=== PATIENT | female | born 1965 | race Caucasian/White ===

== ENCOUNTER 2017-04-29 19:33 | Inpatient (IN) | payer OTHER ==
[~2017-04-29] VITALS: Ht 157.5 cm; Wt 65.2 kg
[2017-04-29 19:30] VITALS: PULSE 89
[~2017-04-29 19:33] MED LIST: ALBUAER3 INH; FLUO40CA PO
[2017-04-29 19:34] VITALS: BP 169/84; PULSE 84; RESP 16; TEMP 98.4; O2SAT 96
[2017-04-29] MEDS ORDERED: NITROGLYCERIN 0.4 MG SL 25 TABS/BTL SL ONE (19:45)
[2017-04-29] MEDS ORDERED: ASPIRIN 81 MG CHEW TAB PO ONE (19:45)
[2017-04-29] MEDS ORDERED: SODIUM CHLORIDE 0.9% FLUSH 10 ML FLUSH IVF PRN ×2 (19:45→20:00)
[2017-04-29] MEDS ORDERED: HEPARIN SODIUM - IV 10,000 UNITS/10 ML VIAL IV STA (19:56)
[2017-04-29] MEDS ORDERED: NITROGLYCERIN 0.4 MG SL 25 TABS/BTL SL STA (19:56)
[2017-04-29] MEDS ORDERED: ASPIRIN 81 MG CHEW TAB PO STA (19:56)
[2017-04-29] MEDS ORDERED: SODIUM CHLOR 0.9% 1000 ML INJ 1,000 ML IV ONE (19:56)
[2017-04-29] MEDS ORDERED: NITROGLYCERIN-D5W 50 MG/250 ML 250 ML IV PRN (20:00)
--- NOTE | 2017-04-29 20:07 | PD ---
HPI Chief Complaint: STEMI Alert Time Seen by Provider: 19:41 Travel History International Travel<30 days: No Contact w/Intl Traveler<30days: No Traveled to known affect area: No History of Present Illness HPI The patient is a 51 year old female who presents to the [facility] emergency department with a history of reportedly over the last 3 days having anterior neck pain that she describes as a burning sensation similar to acid reflux. She reports that the sensation seems to come and go, sometimes awakening her from sound sleep and associated with nausea and vomiting. The patient reports that 2 hours prior to arrival she began to have left-sided chest pain associated with this. She reports that the pain radiated into the left arm with a tingling sensation and also caused left-sided jaw pain. She reports that she has shortness of breath associated with this. She reports that she does have a history of COPD he tried using her inhaler without any relief. The patient denies seeing a plater helper. She denies having any prior history of heart disease. She denies ever having a stress test done previously. She reports that she does smoke a pack of cigarettes per day. She denies having any prior history of hypertension, hyperlipidemia, or diabetes mellitus. She denies having a primary care physician. She reports that she does have a family history of cardiac disease specifically at her dad who had a heart attack at the age of 45. The patient denies having any diaphoresis. She reports that over the last 2 days she's had nausea and vomiting 2-3 times per day. On review of systems, she denies having any recent fevers, congestion, abdominal pain, diarrhea, urinary symptoms, or neurologic symptoms. She reports that last night she did have a dry cough. [facility] Past Medical History Narrative Medical The patient's past medical history is significant for COPD, tobacco abuse COPD: Yes Diabetes: No Diminished Hearing: No Gastrointestinal Disorders: Yes (IBS) Immunizations Current: Yes : 4 Para: 2 Miscarriage: 2 Tubal Ligation: Yes Past Surgical History Narrative Surgical The patient's past surgical history is reportedly none. 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) Tobacco Use: Yes (1 ppd) Substance Use: No Allergies-Medications (Allergen,Severity, Reaction): Coded Allergies: No Known Allergies (Verified , 04/29/17) Reported Meds & Prescriptions Reported Meds & Active Scripts Active Reported Proair Hfa 8.5 GM Inh (Albuterol Sulfate) 90 Mcg/Act Aer 2 Puff INH Q4-6H PRN 108 mcg/actuation Fluoxetine (Fluoxetine HCl) 40 Mg Cap 40 Cap PO DAILY Review of Systems Except as stated in HPI: all other systems reviewed are Neg General / Constitutional: No: Fever Eyes: No: Visual changes HENT: Positive: Neck Pain, No: Headaches, Congestion, Neck Stiffness Cardiovascular: Positive: Chest Pain or Discomfort, Dyspnea on exertion Respiratory: Positive: Cough, Shortness of Breath Gastrointestinal: Positive: Nausea, Vomiting, Indigestion, No: Diarrhea, Abdominal Pain, Changes in Bowel Habits, Loss of Appetite Genitourinary: No: Dysuria Musculoskeletal: No: Pain Skin: No Rash Neurologic: No: Weakness Psychiatric: No: Depression Endocrine: No: Polydipsia Hematologic/Lymphatic: No: Easy Bruising Physical Exam Narrative General: The patient is well-developed well-nourished female in no acute distress. Head and Neck exam: Head is normocephalic atraumatic. Eyes: EOMI, pupils are equal round and reactive to light. Nose: Midline septum with pink mucous membranes Mouth: Dentition unremarkable. Moist mucus membranes. Posterior oropharynx is not erythematous. No tonsillar hypertrophy. Uvula midline. Airway patent. Neck: No palpable lymphadenopathy. No nuchal rigidity. No thyromegaly. Cardiovascular: Regular rate and rhythm without murmurs, gallops, or rubs. No pulse deficit to the extremities. Lungs: Clear to auscultation bilaterally. No wheezes, rhonchi, or rales. Abdomen: Soft, without tenderness to palpation in all 4 quadrants of the abdomen. No guarding, rebound, or rigidity. Normal bowel sounds are audible. No tenderness on palpation of McBurney's point. Extremities: No clubbing, cyanosis, or edema. 2+ pulses in all 4 extremities. No calf tenderness on palpation. Back: No costovertebral angle tenderness to palpation. Neurologic Exam: Grossly nonfocal. Skin Exam: No rash noted. Intact skin that is warm and dry. Data Data Last Documented VS Vital Signs Date Time Temp Pulse Resp B/P (MAP) Pulse Ox O2 Delivery O2 Flow Rate FiO2 04/29/17 20:16 99 16 154/81 (105) 98 Room Air 04/29/17 19:34 98.4 Orders Orders Aspirin Chew (Aspirin Chew) (04/29/17 19:45) Sodium Chloride 0.9% Flush (Ns Flush) (04/29/17 19:45) Nitroglycerin Sl (Nitrostat Sl) (04/29/17 19:45) Troponin I (04/29/17 19:56) Ckmb (Isoenzyme) Profile (04/29/17 19:56) Complete Blood Count With Diff (04/29/17 19:56) I-Stat Profile (04/29/17 19:56) I-Stat Creatinine (04/29/17 19:56) Calcium (04/29/17 19:56) Magnesium (Mg) (04/29/17 19:56) Prothrombin Time / Inr (Pt) (04/29/17 19:56) Act Partial Throm Time (Ptt) (04/29/17 19:56) B-Type Natriuretic Peptide (04/29/17 19:56) Chest, Single Ap (04/29/17 19:56) Electrocardiogram (04/29/17 19:56) Oxygen Administration (04/29/17 19:56) Iv Access Insert/Monitor (04/29/17 19:56) Oximetry (04/29/17 19:56) Sodium Chlor 0.9% 1000 Ml Inj (Ns 1000 M (04/29/17 19:56) Sodium Chloride 0.9% Flush (Ns Flush) (04/29/17 20:00) Aspirin Chew (Aspirin Chew) (04/29/17 19:56) Nitroglycerin Sl (Nitrostat Sl) (04/29/17 19:56) Nitroglycerin-D5w 50 Mg/250 Ml (Nitrogly (04/29/17 20:00) Heparin Inj (Heparin Inj) (04/29/17 19:56) Admit Order (Ed Use Only) (04/29/17 20:20) Heparin-Ns/Pf Inj (Heparin-Ns/Pf Inj) (04/29/17 20:22) Sodium Chlorid 0.9% 500 Ml Inj (Ns 500 M (04/29/17 20:22) CKMB (04/29/17 19:50) CKMB% (04/29/17 19:50) Labs Laboratory Tests Test 04/29/17 19:50 White Blood Count 11.7 TH/MM3 Red Blood Count 4.07 MIL/MM3 Hemoglobin 12.2 GM/DL Bedside Hemoglobin 12.2 G/DL Hematocrit 36.3 % Bedside Hematocrit 36.0 % Mean Corpuscular Volume 89.1 FL Mean Corpuscular Hemoglobin 29.9 PG Mean Corpuscular Hemoglobin Concent 33.6 % Red Cell Distribution Width 13.6 % Platelet Count 256 TH/MM3 Mean Platelet Volume 8.6 FL Neutrophils (%) (Auto) 64.5 % Lymphocytes (%) (Auto) 25.4 % Monocytes (%) (Auto) 7.7 % Eosinophils (%) (Auto) 1.9 % Basophils (%) (Auto) 0.5 % Neutrophils # (Auto) 7.5 TH/MM3 Lymphocytes # (Auto) 3.0 TH/MM3 Monocytes # (Auto) 0.9 TH/MM3 Eosinophils # (Auto) 0.2 TH/MM3 Basophils # (Auto) 0.1 TH/MM3 CBC Comment DIFF FINAL Differential Comment Prothrombin Time 9.9 SEC Prothromb Time International Ratio 0.9 RATIO Activated Partial Thromboplast Time 31.5 SEC Bedside Sodium 140 MMOL/L Bedside Potassium 3.5 MMOL/L Bedside Chloride 104 MMOL/L Bedside Blood Urea Nitrogen 14 MG/DL Bedside Creatinine 1.0 MG/DL Bedside Glucose 157 MG/DL Calcium Level 8.9 MG/DL Magnesium Level 1.9 MG/DL Total Creatine Kinase 199 U/L Creatine Kinase MB 12.0 NG/ML Creatine Kinase MB % 6.0 % Troponin I 3.55 NG/ML B-Type Natriuretic Peptide 74 PG/ML MDM Medical Decision Making Medical Screen Exam Complete: Yes Emergency Medical Condition: Yes Medical Record Reviewed: Yes Interpretation(s) Last Impressions Chest X-Ray 04/29/171955 Signed Impressions: Service Date/Time: Saturday, April 29, 2017 19:52 - CONCLUSION: No acute disease. Ronaldo Bagley MD Differential Diagnosis Unstable angina, versus STEMI, versus acid reflux Narrative Course During the course of the patients emergency department visit, the patients history, examination, and differential diagnosis were reviewed with the patient. The patient had IV access obtained and blood work sent for analysis. The patient was placed on a color checker with oximetry and blood pressure monitoring. An ECG was done on arrival. The patient's ECG reveals ST segment elevation in lead 3, aVF minimal ST segment depression is also noted in aVL. The patient's heart rate is 96. QRS duration is 92 ms, QTC 398 ms. This is a sinus rhythm. A STEMI alert was called when the ECG was brought to me for review. The patient was initially provided aspirin 324 mg by mouth 1, Sublingual nitroglycerin times one, a nitroglycerin drip will be started. The patient will be given an initial bolus of heparin 4000 units, 60 units per KG. The patients laboratory studies were reviewed and remarkable for i-STAT with creatinine reveals a sodium of 140, potassium 3.5, chloride 104, BUN 14, glucose 157, hemoglobin 12.2, creatinine 1.0. PT 9.9, PTT 31.5 Radiology studies were reviewed and remarkable for a chest x-ray showed no acute cardiopulmonary disease. The patient's case was discussed with the plater helper on-call, Dr. Duque. He agreed to take the patient emergently to the cardiac catheterization lab for further evaluation. The patient was also agreeable with this plan. The patients results were discussed with the patient, including the plan of care. I explained that further testing and/ or monitoring is indicated based on the patients history, examination, and/ or laboratory findings. Therefore, I recommended admission for additional evaluation. The patient expressed understanding and was agreeable with this plan. The patient was admitted to the hospital in guarded condition and sent to a bed under the care of the plater helper. Physician Communication Physician Communication I spoke to Dr. Duque at approximately 7:58 PM regarding this patient's case. He plans to take the patient emergently to the cardiac catheterization lab due to her having a STEMI on ECG. Diagnosis Primary Impression: STEMI (ST elevation myocardial infarction) Qualified Codes: I21.3 - ST elevation (STEMI) myocardial infarction of unspecified site Admitting Information Admitting Physician Requests: it Mildred Carroll MD Apr 29, 2017 20:07
[2017-04-29 20:16] VITALS: BP 154/81; PULSE 99; RESP 16; O2SAT 98
[2017-04-29 20:18] LABS: AUTOMATED NEUTROPHIL # 7.5 TH/MM3 (1.8-7.7); BASOPHIL # 0.1 TH/MM3 (0-0.2); BASOPHIL % 0.5 % (0.0-2.0); EOSINOPHIL # 0.2 TH/MM3 (0-0.4); EOSINOPHIL % 1.9 % (0.0-4.0); HEMATOCRIT 36.3 % (35.0-46.0); HEMO FLAGS DIFF FINAL; I-STAT POTASSIUM 3.5 MMOL/L (3.5-4.9); LYMPH % 25.4 % (9.0-44.0); MEAN CELL VOLUME 89.1 FL (80.0-100.0); MEAN CORPUSCULAR HEMOGLOBIN 29.9 PG (27.0-34.0); MEAN CORPUSCULAR HGB CONC 33.6 % (32.0-36.0); MONO % 7.7 % (0.0-8.0); NEUT % 64.5 % (16.0-70.0); PLATELET COUNT 256 TH/MM3 (150-450); RED BLOOD COUNT 4.07 MIL/MM3 (4.00-5.30); RED CELL DISTRIBUTION WIDTH 13.6 % (11.6-17.2); WHITE BLOOD COUNT 11.7 TH/MM3 (4.0-11.0)
[2017-04-29] MEDS ORDERED: SODIUM CHLORID 0.9% 500 ML INJ 500 ML ONE (20:22)
[2017-04-29] MEDS ORDERED: MIDAZOLAM HCL 2 MG/2 ML VIAL ONE (20:22)
[2017-04-29] MEDS ORDERED: HEPARIN-NS/PF INJ 1,000 ML ONE (20:22)
[2017-04-29] MEDS ORDERED: NITROGLYCERIN INJ 5 ML ONE (20:23)
[2017-04-29] MEDS ORDERED: HEPARIN SODIUM - IV 10,000 UNITS/10 ML VIAL ONE (20:23)
--- NOTE | 2017-04-29 20:26 | RADRPT ---
EXAM DATE/TIME: 04/29/2017 19:52 [place] COMPARISON: No previous studies available for comparison. INDICATIONS : Chest pain. MEDICAL HISTORY : None. SURGICAL HISTORY : None. ENCOUNTER: Initial ACUITY: 1 day PAIN SCORE: 0/10 LOCATION: Bilateral chest FINDINGS: A single view of the chest demonstrates the lungs to be symmetrically aerated without evidence of mas s, infiltrate or effusion. The cardiomediastinal contours are unremarkable. Osseous structures are intact. CONCLUSION: No acute disease. Ronaldo Bagley MD on April 29, 2017 at 20:25 Board Certified Radiologist. This report was verified electronically.
[2017-04-29 20:31] LABS: APTT (PATIENT) 31.5 SEC (24.3-30.1); INTERNATIONAL NORMALIZED RATIO 0.9 RATIO; PROTHROMBIN TIME - PATIENT 9.9 SEC (9.8-11.6)
[2017-04-29 20:32] LABS: MAGNESIUM 1.9 MG/DL (1.5-2.5)
[2017-04-29] MEDS ORDERED: CLOPIDOGREL 300 MG TAB ONE (21:05)
--- NOTE | 2017-04-29 21:13 | CATHPROC ---
[employer] HIS Report Study Information Study Number Admission Scheduled Start Study Start [id number] Apr 29 2017 8:22PM 04/29/2017 Apr 29 2017 8:28PM [facility] Service Cardiac Catheterization Admit Source Facility Department Emergency department [facility] - Mechanical Maintenance Instructor Physician and Clinical Staff Initial Aurelio Henriquez Head Baker Anne Barber,[place] Head Baker Irene Hanson,[place] Recorder Sherif Hardy,RT(R) Scrub Michael Hammonds RCIS(BS) Procedures Performed Procedure Location (Site) Vessel Name Coronary Angiograms LCA Left Coronary Coronary Angiograms RCA Right Coronary Drug Eluting Inflatio RCA Mid Right Coronary L Heart Cath PTCA RCA Mid Right Coronary Wire insertion Fem Art (right) Femoral Art Equipment Time Trimming Press Operator Description Size Mfg Part Number Used/Scraped WIRE, BALANCE MIDDLEWEIGHT [id number] 20:45 [employer] 190CM Used 190CM *[id number] TRANSDUCER, TRUWAVE [id number] 20:38 SCHMITT PAULINO * Used W/FootmarksCOCK *[id number] *[id number] *[id number] 20:38 [employer]cer INDUSTRIES PACK, CCL CUSTOM * Used *[id number] 20:45 MEDTRONIC BALLOON, 2.0 X 12MM EUPHORA 12MM Used *[id number] BALLOON, 2.75 X 12MM NC [id number] 20:55 MEDTRONIC 12MM Used EUPHORA *[id number] 20:51 MEDTRONIC STENT, 2.5 15MM BREE 2.5 15MM Used *[id number] 20:50 Mobile Location, IP MEDICAL 30 AIDAN INDEFLATOR Used *[id number] 20:38 Mobile Location, IP MEDICAL WIRE, 3MMJ .035 180CM 180CM Used *[id number] 20:38 NAMIC MANIFOLD, 4 PORT * Used *[id number] 20:38 NYCOMED OMNIPAQUE, 350 MG, 150ML 150ML [id number] Used [id number] 20:38 NUNEZ MEDICAL BLANKET,WARM AIR CCL * Used *[id number] 20:40 TERUMO MEDICAL SHEATH, FR6 TERUMO (10CM) FR 6 Used *[id number] Equipment Model, Serial, Lot Number and Expiration Data Description Model Number Serial Number Lot Number Expiration Date BALLOON, 2.0 X 12MM EUPHORA [id number] 01-15-2019 STENT, 2.5 15MM BREE [id number] 01-18-2019 History: Allergies Allergy Reaction No Known Allergies History: Risk Factors Family History of Hypertension Dyslipidemia Previous PR Previous Heart Failure Premature CAD No No Yes No No Prior Valve Prior PCI Prior CABG Surgery No No No Cerebrovascular Peripheral Artery Chronic Lung On Dialysis Diabetes Disease Disease Disease No No No No No History: Risk Factors Selection Items Current Smoker History: Symptoms/Diagnosis Selection Items Chest pain History: Stress Tests Stress or Imaging Studies Performed No History: Other Current Smoker Method Packs a Day Years Used Pack Years Yes Cigarettes 1 40 40 Labs Hgb (g/dl) Hct (%) RBC (MIL/MM3) WBC (l/cumm) Platelets (thousands) 11.60-17.00 35.00-51.00 4.00-5.90 4.00-11.00 150.00-450.00 12.2 36.3 4 11.7 256 Glucose (mg/dl) BUN (mg/dl) Creatinine (mg/dl) BUN:Creatinine (1:x) 74.00-106.00 7.00-18.00 0.50-1.30 10.00-20.00 157 14 1.0 14 Na (meq/l) K (meq/l) Cl (meq/l) Ca (mg/dl) 136.00-145.00 3.50-5.10 98.00-107.00 8.50-10.10 140 3.5 104 8.9 PT (sec) PTT (sec) INR (PTT:PT) 9.80-11.60 24.30-30.10 0.90-1.10 9.9 31.5 0.9 CPK-MB (ng/ML) 0.50-3.60 Not Drawn Medication Medication Total Dose (Bolus/Oral) Medication Total Dosage/Unit 1% XYLOCAINE 20 mL HEPARIN 4400 units Medications (Bolus/Oral) Medication Time Given Dosage/Unit Administered By Reason 1% XYLOCAINE 04/29/2017 8:36:06 PM 20 mL Aurelio Duque 20 mL 1% XYLOCAINE given in lab by Aurelio Duque in Right Groin via Subcutaneous. HEPARIN 04/29/2017 8:46:38 PM 4400 units Irene Hanson 4400 units HEPARIN given in lab by Irene Hanson, RN in Left Antecubital via Peripheral IV. Medication (Drip) Medication Time Given Dosage/Unit Concentration/Unit Diluent (ml) Solution IV Solutions 04/29/2017 8:32:41 PM 0 mL (IV) 1000 NaCl .9 Patient arrived on IV Solutions in Left Antecubital via Peripheral IV. Pump/Drip Flow = 20 ml/hr usin g NaCl .9. NITROGLYCERIN DRIP 04/29/2017 8:28:40 PM 10 mcg/min 50 mg 250 D5W Patient arrived on 10 mcg/min NITROGLYCERIN DRIP in Left Antecubital via Peripheral IV. Pump/Drip Noah w = 3 ml/hr using D5W with a concentration of 50 mg in 250 ml. NITROGLYCERN DRIP 04/29/2017 8:35:02 PM 0 units/hr 0 STOPPED Patient arrived on 0 units/hr NITROGLYCERN DRIP STOPPED given by Irene Hanson, [place]. Pump/Drip Flow = 0 ml/hr using [Solution Name]. Initial Case Assessment Cardiovascular HR Rhythm NIBP Chest Pain 60 Irregular 160/91 5 Edema Present Skin color Skin None Normal Warm Circulatory - Right Pulses Dorsalis Pedis Femoral 2 2 Scale (0,1,2,3,4,d) Circulatory - Left Pulses Dorsalis Pedis Femoral 2 2 Scale (0,1,2,3,4,d) Neurological State Oriented to time-place- Alert Moves all extremities person Respiration - General Respiration Rate SpO2 (%) O2 (lpm) (B/min) 10 100 2 Final Case Assessment Cardiovascular HR Rhythm NIBP Chest Pain 87 Sinus 152/85 0 Edema Present Skin color Skin None Normal Warm Dry Circulatory - Right Pulses Dorsalis Pedis Femoral 2 2 Scale (0,1,2,3,4,d) Circulatory - Left Pulses Dorsalis Pedis Femoral 2 2 Scale (0,1,2,3,4,d) Neurological State Oriented to time-place- Alert Moves all extremities person Respiration - General Respiration Rate SpO2 (%) O2 (lpm) (B/min) 21 90 0 Chronological Log Time Study Chronological Log 20:20:50 MD arrived. 20:24:11 Patient arrived via Bed. 20:28:17 Patient Name, D.O.B, / Armband Verified By R.N. 20:28:18 Consent signed by the physician and the patient and verified by the Mechanical Maintenance Instructor staff. 20:28:19 Pre-op and post- op instructions given; patient acknowledges understanding of instructions. 20:28:19 Verbal Stimulation=2 Physical Stimulation=2 Airway=2 Respiration=2 TOTAL=8. (0=absent, 1=li mited, 2=present) 20:28:23 Presedation assessment performed by Mechanical Maintenance Instructor RN. 20:28:28 Patient has been NPO for Less than 6Hrs. 20:28:30 Skin Breakdown-none per patient. 20::34 Patient Warmer Placed on the Table. 20:28:36 Floridalma Prominences Protected 20::37 A # 20 IV was noted in the Antecubital (left). Grade = 0 Patient arrived on 10 mcg/min NITROGLYCERIN DRIP in Left Antecubital via Peripheral IV. Pump/Dr ip Flow = 3 ml/hr 20::40 using D5W with a concentration of 50 mg in 250 ml. 20::40 History and physical on the chart or being dictated. Assessment: Initial Case, HR=60 BPM, Rhythm=Irregular, OWCA=351/91 mmhg, Chest Pain=5, Edema=No ne, Color=Normal, Skin = Warm Right Pulses: Danyel Ped=2, Femoral=2 20::41 Left Pulses: Danyel Ped=2, Femoral=2 Neurological: State=Alert, Ox3, RICARDO Respiration: Resp=10 B/min, FvM6=004 %, O2=2 lpm Vitals capture started with the following parameters, Patient=Adult, Interval=5 min, Initial Pr cqxxmq=381 mmHg, 20::45 Deflation Rate=5 mmHg, Cuff placed on Left Ankle 20:29:50 YMGP=150/91 mmhg, DsO9=320.0 %, Resp=10 B/min, Pain=7, Rosina=10, Nance=2 20:31:12 Bilateral groins prepped with 2% chlorhexidine, and with a 3 min. waiting time. 20:32:29 A # 20 IV was noted in the Antecubital (right). Grade = 0 20:32:41 Patient arrived on IV Solutions in Left Antecubital via Peripheral IV. Pump/Drip Flow = 20 ml/hr using NaCl .9. 20:34:22 HR=93 bpm, AFLQ=758/83 mmhg, VlZ5=213.0 %, Resp=10 B/min Time Out. Correct patient, correct procedure,correct physician, power injector not loaded with contrast with surgical 20:34:36 team present. Time Out Concurred by , individual staff in procedure 20:34:58 Case Start Patient arrived on 0 units/hr NITROGLYCERN DRIP STOPPED given by Irene Hanson, RN. Pump/Drip Flow = 0 ml/hr 20:35:02 using [Solution Name]. 20:36:06 20 mL 1% XYLOCAINE given in lab by Aurelio Duque in Right Groin via Subcutaneous. 20:37:03 Pressure channel 1 zeroed. 20:38:36 Access site was Right Femoral Artery. 20:39:21 HR=93 bpm, BPCG=414/82 mmhg, SpO2=99.0 %, Resp=16 B/min, Pain=7, Rosina=10, Nance=2 20:39:59 A SHEATH, FR6 TERUMO (10CM) FR 6 was advanced into the Fem Art (right) using the Percutaneo us technique. 20:40:33 An injection in the Fem Art (right) was made through the SHEATH, FR6 TERUMO (10CM) FR 6. A JL 4.0 INFINITI CATHETER FR 6 was advanced over a wire. OMNIPAQUE, 350 MG, 150ML 150ML was us ed for 20:40:58 injections. Recorded Pressure: Ao, HR=89, Condition=Condition 1 20:41:38 (Aorta) Ao 124/57/85 20:41:58 The LCA was injected and visualized at various angles. OMNIPAQUE, 350 MG, 150ML 150ML used . After removing the current catheter a JR 4.0 GUIDE CATHETER FR 6 was advanced over a WIRE, 3MMJ .035 180CM 20:43:28 180CM. 20:44:20 QQ=057 bpm, PJTC=944/85 mmhg, SpO2=99.0 %, Resp=6 B/min, Pain=7, Rosina=10, Nance=2 Recorded Pressure: LV, HR=88, Condition=Condition 1 20:44:44 (Left Ventricle) LV 145/8/16 Recorded Pressure: LV, Ao, HR=96, Condition=Condition 1 20:44:58 (Left Ventricle) LV 153/7/16, (Aorta) Ao 146/78/109 20:45:29 Reference ECG taken 20:45:40 The RCA was injected and visualized at various angles. OMNIPAQUE, 350 MG, 150ML 150ML used . 20:46:38 4400 units HEPARIN given in lab by Irene Hanson, [place] in Left Antecubital via Peripheral IV . 20:47:00 A WIRE, BALANCE MIDDLEWEIGHT 190CM 190CM was inserted via Fem Art (right). 20:48:08 Interventional wire has crossed the lesion A BALLOON, 2.0 X 12MM EUPHORA 12MM was inserted over WIRE, BALANCE MIDDLEWEIGHT 190CM 190CM via the 20:49:15 RCA Mid. 20:49:21 HR=97 bpm, WVRS=513/93 mmhg, SpO2=98.0 %, Resp=17 B/min, Pain=7, Rosina=10, Nance=2 A BALLOON, 2.0 X 12MM EUPHORA 12MM over a WIRE, BALANCE MIDDLEWEIGHT 190CM 190CM in the RCA Mid was 20:49:42 inflated using a 30 AIDAN INDEFLATOR at 12 aidan for 20 sec. 20:51:40 Activated Clotting Time Drawn 20:52:16 Balloon Removed. A STENT, 2.5 15MM BREE 2.5 15MM was advanced through a JR 4.0 GUIDE CATHETER FR 6 over a WIRE, BALANCE 20:52:38 MIDDLEWEIGHT 190CM 190CM. A STENT, 2.5 15MM BREE 2.5 15MM was deployed using a 30 AIDAN INDEFLATOR at 12 atmospheres for 20 seconds in 20:53:08 the RCA Mid. 20:54:22 AV=456 bpm, RYHB=243/87 mmhg, SpO2=99.0 %, Resp=11 B/min, Pain=7, Rosian=10, Nance=2 20:55:48 Delivery device removed A BALLOON, 2.75 X 12MM NC EUPHORA 12MM was inserted over WIRE, BALANCE MIDDLEWEIGHT 190CM 190CM via 20:55:53 the RCA Mid. A BALLOON, 2.75 X 12MM NC EUPHORA 12MM over a WIRE, BALANCE MIDDLEWEIGHT 190CM 190CM in the RCA Mid 20:56:01 was inflated using a 30 AIDAN INDEFLATOR at 16 aidan for 20 sec. A BALLOON, 2.75 X 12MM NC EUPHORA 12MM over a WIRE, BALANCE MIDDLEWEIGHT 190CM 190CM in the RCA Mid 20:56:23 was inflated using a 30 AIDAN INDEFLATOR at 18 aidan for 15 sec. 20:56:56 Balloon Removed. 20:57:11 The RCA was injected and visualized at various angles. OMNIPAQUE, 350 MG, 150ML 150ML used . 20:57:34 ACT (Normal Range 90-180) = 321 A BALLOON, 2.75 X 12MM NC EUPHORA 12MM was inserted over WIRE, BALANCE MIDDLEWEIGHT 190CM 190CM via 20:59:19 the RCA Mid. 20:59:25 HR=87 bpm, QHLF=604/79 mmhg, CnI5=788.0 %, Resp=15 B/min, Pain=7, Rosina=10, Nance=2 A BALLOON, 2.75 X 12MM NC EUPHORA 12MM over a WIRE, BALANCE MIDDLEWEIGHT 190CM 190CM in the RCA Mid 20:59:30 was inflated using a 30 AIDAN INDEFLATOR at 18 aidan for 20 sec. 21::34 Balloon Removed. 21:01:41 Wire removed 21:03:06 Catheter was removed 21:03:10 Case End 21:03:19 In the Fem Art (right) the SHEATH, FR6 TERUMO (10CM) FR [address] by Ivis Hammonds RCIS(BS). 21:03:30 No case complications noted. 21:03:31 Cine recording checked. 21:04:08 Bedside Report will be given. 21:04:12 A Left Heart Cath was performed. Assessment: Final Case, HR=87 BPM, Rhythm=Sinus, XROK=582/85 mmhg, Chest Pain=0, Edema=None, Color=Normal, Skin = Warm, Dry Right Pulses: Danyle Ped=2, Femoral=2 21:04:21 Left Pulses: Danyel Ped=2, Femoral=2 Neurological: State=Alert, Ox3, RICARDO Respiration: Resp=21 B/min, SpO2=90 %, O2=0 lpm 21:04:22 HR=91 bpm, LZBW=679/85 mmhg, SpO2=99.0 %, Resp=13 B/min, Pain=7, Rosina=10, Nance=2 21:07:40 Vitals capture stopped. 21:12:26 Patient moved to stretcher End Study - Contrast Media Used In Study Contrast Total Opened (mL) Total Used (mL) Total Wasted (mL) Omnipaque 150 100 50 End Study - Maximum Contrast Load Max Contrast Load (mL) 330.0 End Study - Radiation Exposure Fluoro Time (minutes) 6.1 End Study - Patient Disposition Complications Transferred To Interventional Outcome No Telemetry Bed successful
[2017-04-29] MEDS ORDERED: ONDANSETRON HCL 4 MG/2 ML VIAL IV PUSH PRN (21:15)
[2017-04-29] MEDS ORDERED: MISC INFORMATION XX ONE (21:15)
[2017-04-29] MEDS ORDERED: ACETAMINOPHEN 325 MG TAB PO PRN (21:15)
[2017-04-29] MEDS ORDERED: ATROPINE SULFATE 1 MG/ML VIAL IV PUSH PRN (21:15)
[2017-04-29] MEDS ORDERED: MORPHINE SULFATE 4 MG/ML INJ IV PUSH PRN (21:15)
[2017-04-29] MEDS ORDERED: ALBUTEROL SULFATE 90 MCG/ACT HFA 8 GM INHALER INH PRN (21:15)
[2017-04-29] MEDS ORDERED: oxyCODONE/ACETAMINOPHEN 5 MG/325 MG TAB PO PRN (21:15)
[2017-04-29] MEDS ORDERED: ATORVASTATIN 10 MG TAB PO SCH (21:15)
[2017-04-29] MEDS ORDERED: SODIUM CHLOR 0.9% 250 ML INJ 250 ML IV PRN (21:15)
[2017-04-29 21:30] VITALS: BP 141/80; PULSE 87; RESP 18; TEMP 98.1; O2SAT 99
[2017-04-29 22:00] VITALS: PULSE 88
[2017-04-29 23:00] VITALS: BP 124/80; PULSE 82; PULSE 85; RESP 18; TEMP 97.5; O2SAT 100
[2017-04-30] VITALS (26 sets, daily range): BP systolic 101–130; BP diastolic 63–89; PULSE 67–86; RESP 18–20; TEMP 97.6–98.7; O2SAT 96–100
[2017-04-30] MEDS: oxyCODONE/ACETAMINOPHEN 10 MG/325 MG TAB PO PRN ×2 (03:13→21:08)
--- NOTE | 2017-04-30 05:34 | MH ---
cc: AURELIO LOREDO DO DATE OF ADMISSION: 04/29/2017 CHIEF COMPLAINT Chest pain. HISTORY OF CHIEF COMPLAINT Bobbi Mendez is a pleasant 51-year-old female who presented to [facility] emergency room due to chest pain on April 29, 2017. She states that she has had anterior neck pain for the past three days and was burning in sensation. It is similar to her acid reflux but was not going away like usual. The sensation seemed to come and go, sometimes awakening her from sleeping. Around 2 hours before arrival to the emergency room she started getting left-sided chest pain associated with the similar feeling of burning in her neck. The pain radiated to her left arm with a tingling sensation. She was also short of breath. Upon presenting to the emergency room she was found to have ST elevations in the inferior lead and I was called emergently for consideration of cardiac catheterization. PAST MEDICAL HISTORY 1. COPD. 2. Tobacco abuse. PAST SURGICAL HISTORY Denies. ALLERGIES No known drug allergies. MEDICATIONS 1. Albuterol 2 puffs every 6 hours as needed for shortness of breath. 2. Fluoxetine 40 mg daily. 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 She smokes one-pack of cigarettes a day. Denies drug abuse. FAMILY HISTORY Father had a heart attack at the age of 45. REVIEW OF SYSTEMS 14-systems were reviewed including osteopathic pertinent positives and negatives above, otherwise negative. PHYSICAL EXAMINATION VITAL SIGNS: Temperature 98.4, heart rate 84, blood pressure 169/84, respirations 16, pulse ox 96% on room air. IN GENERAL: The patient appears in mild distress due to chest pain. HEENT: Extraocular muscles intact. Mucous membranes moist. NECK: Supple. No JVD at 45 degrees. No carotid bruits heard bilaterally. Carotid upstroke is brisk in nature. HEART: Regular rate and rhythm. Positive first and second heart sounds with no murmurs, gallops or rubs. LUNGS: Decreased breath sounds bilaterally but no overt wheezes, rales or rhonchi. ABDOMEN: Soft, non-tender, non-distended. No organomegaly noted. EXTREMITIES: No clubbing, cyanosis or edema. Femoral and distal pulses intact bilaterally. NEUROLOGICALLY: No focal deficits. SKIN: Warm, dry and intact. OSTEOPATHICALLY: No kyphoscoliosis, lordosis or paraspinal tender points. LABORATORY FINDINGS Hemoglobin 12.3 with hematocrit of 36.3, platelets 256. Potassium 3.5, BUN 14, creatinine 1.0. Troponin 3.55. BNP 74. ELECTROCARDIOGRAM (April 29, 2017 at 19:49) Sinus rhythm, ST elevation inferiorly consistent with an acute inferior myocardial infarction. IMPRESSIONS 1. Acute inferior ST-elevation myocardial infarction. 2. COPD. 3. Tobacco abuse. 4. Premature coronary artery disease. RECOMMENDATIONS 1. Ms. Mendez is presenting with an acute inferior myocardial infarction. 2. She will be taken emergently to the cardiac catheterization lab. 3. Risks, benefits and alternatives were explained to her and she consents as such. 4. We will check a 2-D echo to look at her overall left ventricular function, cardiac structure and possible valopathies. 5. We will have to see about adding beta yenny therapy to her regimen as she does have significant COPD. 6. I spoke to her for greater than 3 minutes about tobacco cessation. Thank you for allowing me to see Bobbi Mendez. It there are any questions, please do not hesitate to call. Aurelio Loredo DO VGP/SSB /12:18 AM /5:23 AM
--- NOTE | 2017-04-30 06:14 | MA ---
cc: AURELIO LOREDO DO DATE OF PROCEDURE April 29, 2017 PROCEDURE Left heart catheterization, coronary angiogram, revascularization of acute STEMI, status post [place] drug-eluting stent (2.5 x 15) to the RCA. Moderate sedation 30 minutes PREPROCEDURE DIAGNOSIS Acute STEMI. POSTPROCEDURE DIAGNOSIS Acute inferior STEMI status post [place]fe[place] drug-eluting stent (2.5 x 15). MEDICATIONS 1. Versed 0.5 mg. 2. Fentanyl 25 mcg. 3. Heparin 4400 units. 4. Plavix 600 mg. CONTRAST USED 100 cc. FLUOROSCOPY 6.1 minutes MODERATE SEDATION 30 minutes ESTIMATED BLOOD LOSS 10 cc. PROCEDURAL SUMMARY Bobbi Mendez is a pleasant 51-year-old female who presented with an acute inferior ST-elevation myocardial infarction. Because of this she was recommended cardiac catheterization emergently. The risks, benefits and alternatives were explained to her and she consented as such. She was brought to lab and prepped in the usual sterile fashion. The right femoral artery was accessed using a modified Seldinger technique with a micropuncture needle and placement of a 6-[place] sheath. This was easily aspirated and flushed. Of note, it appears that she does have a 30-40% lesion in her common femoral artery through which the sheath is placed. A JL-4 was advanced over a J-wire to the ascending aorta for nonselective coronary angiogram of the left coronary system. This was exchanged out for a JR-4 guide which was advanced into the left ventricle for measurement of left ventricular pressure. This pulled back across the aortic valve showing no significant gradient of aortic stenosis. The JR-4 was then engaged in the right coronary artery for right coronary angiogram. At this time the patient was given additional heparin as an anticoagulant. A BMW wire was advanced down to the distal RCA. A Compliant balloon (2 x 12) was then used to predilate the lesion. An [place] drug-eluting stent (2.5 x 15) was then inflated over the lesion. A Non-Compliant balloon (2.75 x 12) was then used to post dilate the stent. The wire was pulled back. Final angiogram shows a well-opposed stent with no dissections or perforations. The wire was removed. Guide was removed over a J-wire. The sheath was sewn in place with a plan to remove once ACTs were adequate. IMPRESSIONS 1. Acute inferior STEMI. 2. Coronary artery disease status post [place]fego drug-eluting stent (2.5 x 15) to the mid-RCA postdilated to 2.75. 3. COPD. RECOMMENDATIONS 1. Ms. Loredo presented with an acute inferior STEMI and received one [place] drug-eluting stent to the RCA. 2. She will be placed on aspirin, Plavix and statin therapy. Beta-yenny will be held at this time due to her COPD but may be reevaluated before discharge. 3. She will be watched on CIC for least 48 hours post DE. 4. We will check an echo to look at her overall left ventricular function, cardiac structure and possible valvopathies. 5. Further recommendations will be made based on the hospital course. Thank you for allowing me to see Bobbi Loredo. If there are any questions, please do not hesitate to call. Aurelio Loredo DO VGP/SSB /12:25 AM /6:02 AM
[2017-04-30 06:40] LABS: AUTOMATED NEUTROPHIL # 5.5 TH/MM3 (1.8-7.7); BASOPHIL % 0.5 % (0.0-2.0); EOSINOPHIL # 0.2 TH/MM3 (0-0.4); EOSINOPHIL % 2.4 % (0.0-4.0); HEMATOCRIT 33.5 % (35.0-46.0); HEMO FLAGS DIFF FINAL; LYMPH % 30.8 % (9.0-44.0); LYMPHOCYTE # 2.8 TH/MM3 (1.0-4.8); MEAN CELL VOLUME 89.8 FL (80.0-100.0); MEAN CORPUSCULAR HEMOGLOBIN 29.9 PG (27.0-34.0); MEAN CORPUSCULAR HGB CONC 33.4 % (32.0-36.0); MONO % 6.7 % (0.0-8.0); NEUT % 59.6 % (16.0-70.0); PLATELET COUNT 233 TH/MM3 (150-450); RED BLOOD COUNT 3.74 MIL/MM3 (4.00-5.30); RED CELL DISTRIBUTION WIDTH 13.8 % (11.6-17.2); WHITE BLOOD COUNT 9.3 TH/MM3 (4.0-11.0)
[2017-04-30 07:18] LABS: BICARBONATE 24.5 MEQ/L (21.0-32.0); POTASSIUM 3.8 MEQ/L (3.5-5.1)
[2017-04-30 07:29] LABS: HDL CHOLESTEROL 49.5 MG/DL (40.0-60.0)
[2017-04-30] MEDS ORDERED: ATROPINE SULFATE 1 MG/10 ML SYRINGE ONE (07:42)
[2017-04-30] MEDS ORDERED: EPINEPHrine HCL (1:10,000) 1 MG/10 ML SYRINGE ONE (07:43)
[2017-04-30] MEDS: ASPIRIN 81 MG CHEW TAB PO SCH (09:00)
[2017-04-30] MEDS ORDERED: INFLUENZA VIRUS VACCINE (QUADRIVALENT) 0.5 ML SYR IM ONE (09:00)
[2017-04-30] MEDS: CLOPIDOGREL 75 MG TAB PO SCH (09:00)
[2017-04-30] MEDS: LISINOPRIL 5 MG TAB PO SCH (09:00)
[2017-04-30] MEDS: FLUoxetine HCL 20 MG CAP PO SCH (09:00)
--- NOTE | 2017-04-30 13:15 | PD.CONS ---
[facility] Consult Requested By Dr. Duque Reason for Consult Medical management and transfer of care Primary Care Physician Mariela Frost D.O. Diagnoses: History of Present Illness This is a 51-year-old female with a history of COPD, tobacco abuse and IBS. Patient reports of burning neck pain for the past 3 days similar to her symptoms from GERD. She also has been nauseous and had vomited several times associated with diaphoresis which she thought was related to her hormonal changes. On the night of admission, she also developed severe left-sided burning chest pain with tingling of the left upper extremity associated with shortness of breath prompting ER evaluation and was diagnosed with inferior wall STEMI. Underwent urgent cardiac catheterization with RCA stenting. Consultation has been requested by her attending Dr. Duque whom I discussed the case with. She also developed abdominal pain this morning secondary to her very retention relieved with Ball catheter insertion. Denies fever, chills, back pain and UTI symptoms. All other systems reviewed negative Review of Systems Except as stated in HPI: all other systems reviewed are Neg Past Family Social History Allergies: Coded Allergies: No Known Allergies (Verified , 04/29/17) Past Medical History As previously mentioned Past Surgical History As previously mentioned. Bilateral tubal ligation Reported Medications Reported Meds & Active Scripts Active Reported Proair Hfa 8.5 GM Inh (Albuterol Sulfate) 90 Mcg/Act Aer 2 Puff INH Q4-6H PRN 108 mcg/actuation Fluoxetine (Fluoxetine HCl) 40 Mg Cap 40 Cap PO DAILY Family History CAD Social History Smokes a pack per day. 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 Physical Exam Vital Signs Vital Signs Date Time Temp Pulse Resp B/P (MAP) Pulse Ox O2 Delivery O2 Flow Rate FiO2 04/30/17 09:00 Room Air 04/30/17 09:00 78 04/30/17 08:00 82 04/30/17 07:30 98.4 84 20 130/89 (103) 98 04/30/17 07:00 84 04/30/17 06:00 71 04/30/17 05:00 78 04/30/17 04:00 76 04/30/17 03:20 100 Nasal Cannula 2.00 04/30/17 03:20 97.7 83 18 110/73 (85) 100 04/30/17 03:00 74 04/30/17 02:00 75 04/30/17 01:00 83 04/30/17 00:00 84 04/29/17 23:00 85 04/29/17 23:00 97.5 82 18 124/80 (95) 100 04/29/17 23:00 100 Nasal Cannula 2.00 04/29/17 22:00 88 04/29/17 21:30 98.1 87 18 141/80 (100) 99 04/29/17 21:30 99 Nasal Cannula 2.00 04/29/17 20:16 99 16 154/81 (105) 98 Room Air 04/29/17 20:16 98 Room Air 04/29/17 20:12 99 154/81 04/29/17 19:34 98.4 84 16 169/84 (112) 96 Room Air 04/29/17 19:30 89 Physical Exam GENERAL: This is a well-nourished, well-developed patient, in no apparent distress. SKIN: No rashes, ecchymoses or lesions. Cool and dry. HEAD: Atraumatic. Normocephalic. No temporal or scalp tenderness. EYES: Pupils equal round and reactive. Extraocular motions intact. No scleral icterus. No injection or drainage. ENT: Nose without bleeding, purulent drainage or septal hematoma. Throat without erythema, tonsillar hypertrophy or exudate. Uvula midline. Airway patent. NECK: Trachea midline. No JVD or lymphadenopathy. Supple, nontender, no meningeal signs. CARDIOVASCULAR: Regular rate and rhythm without murmurs, gallops, or rubs. RESPIRATORY: Clear to auscultation. Breath sounds equal bilaterally. No wheezes , rales, or rhonchi. GASTROINTESTINAL: Abdomen soft, non-tender, nondistended. No guarding. Ball catheter in place MUSCULOSKELETAL: Extremities without clubbing, cyanosis, or edema. No joint tenderness, effusion, or edema noted. No calf tenderness. Negative Homans sign bilaterally. NEUROLOGICAL: Awake and alert. Cranial nerves II through XII intact. Motor and sensory grossly within normal limits. Five out of 5 muscle strength in all muscle groups. Normal speech. Laboratory Laboratory Tests Test 04/29/17 19:50 04/30/17 06:15 White Blood Count 11.7 9.3 Red Blood Count 4.07 3.74 Hemoglobin 12.2 11.2 Bedside Hemoglobin 12.2 Hematocrit 36.3 33.5 Bedside Hematocrit 36.0 Mean Corpuscular Volume 89.1 89.8 Mean Corpuscular Hemoglobin 29.9 29.9 Mean Corpuscular Hemoglobin Concent 33.6 33.4 Red Cell Distribution Width 13.6 13.8 Platelet Count 256 233 Mean Platelet Volume 8.6 8.4 Neutrophils (%) (Auto) 64.5 59.6 Lymphocytes (%) (Auto) 25.4 30.8 Monocytes (%) (Auto) 7.7 6.7 Eosinophils (%) (Auto) 1.9 2.4 Basophils (%) (Auto) 0.5 0.5 Neutrophils # (Auto) 7.5 5.5 Lymphocytes # (Auto) 3.0 2.8 Monocytes # (Auto) 0.9 0.6 Eosinophils # (Auto) 0.2 0.2 Basophils # (Auto) 0.1 0.0 CBC Comment DIFF FINAL DIFF FINAL Differential Comment Prothrombin Time 9.9 Prothromb Time International Ratio 0.9 Activated Partial Thromboplast Time 31.5 Bedside Sodium 140 Bedside Potassium 3.5 Bedside Chloride 104 Bedside Blood Urea Nitrogen 14 Bedside Creatinine 1.0 Bedside Glucose 157 Calcium Level 8.9 8.1 Magnesium Level 1.9 Total Creatine Kinase 199 Creatine Kinase MB 12.0 Creatine Kinase MB % 6.0 Troponin I 3.55 B-Type Natriuretic Peptide 74 Blood Urea Nitrogen 11 Creatinine 0.61 Random Glucose 89 Sodium Level 140 Potassium Level 3.8 Chloride Level 109 Carbon Dioxide Level 24.5 Anion Gap 7 Estimat Glomerular Filtration Rate 103 Triglycerides Level 154 Cholesterol Level 185 LDL Cholesterol 105 HDL Cholesterol 49.5 Cholesterol/HDL Ratio 3.73 Result Diagram: 04/30/1761404/30/17614 Imaging EKG tracing reviewed by me with ST elevation in the inferior leads Chest x-ray image interpreted by me with no acute cardiopulmonary disease Last Impressions Chest X-Ray 04/29/171955 Signed Impressions: Service Date/Time: Saturday, April 29, 2017 19:52 - CONCLUSION: No acute disease. Ronaldo Bagley MD Assessment and Plan Problem List: (1) STEMI (ST elevation myocardial infarction) ICD Code: I21.3 - ST elevation (STEMI) myocardial infarction of unspecified site Status: Acute Assessment and Plan This is a 51-year-old female with a history of COPD, tobacco abuse and IBS. She presents with chest pain, nausea, vomiting, shortness of breath and diaphoresis. EKG shows ST elevation in the inferior wall with elevated cardiac enzymes Inferior wall STEMI. Underwent urgent cardiac catheterization with RCA stenting. Stable continue aspirin, Plavix, lisinopril and Lipitor. Start beta yenny in the morning if her COPD remained stable. Risk factor modification tobacco cessation and follow-up A1c. COPD. Albuterol as needed Urinary retention. Ball care. Obtain urinalysis DVT prophylaxis with SCD and early ambulation Discussed Condition With Patient Problem Qualifiers (1) STEMI (ST elevation myocardial infarction): Qualified Codes: I21.3 - ST elevation (STEMI) myocardial infarction of unspecified site Erlin Mcbride MD Apr 30, 2017 13:15
[2017-04-30 13:22] LABS: HEMOGLOBIN A1a 0.9 %; HEMOGLOBIN A1b 1.8 %; HEMOGLOBIN Ao 84.8 %; HEMOGLOBIN LA1C 2.3 %; HEMOGLOBIN P3 3.9 %
[2017-04-30 14:10] LABS: BLOOD, URINE TRACE (NEG); GLUCOSE,URINE NEG (NEG); KETONE, URINE NEG (NEG); MUCUS URINE FEW /lpf (OCC); NITRITE,URINE NEG (NEG); URINE COLOR LIGHT-YELLOW (YELLW/STRAW)
[2017-04-30 14:13] LABS: COMMENT (UR) CATH-CULT NOT IND; CULTURE IF INDICATED CATH CULTURE NOT IND
--- NOTE | 2017-04-30 14:23 | EKG ---
Date Performed: 04/29/2017 Time Performed: 19:49:40 PTAGE: 51 years EKG: Sinus rhythm ST ELEVATION, CONSIDER INFERIOR INJURY ACUTE WV Reciprocal anterior changes Clinical correlati on urgently recommended NO PREVIOUS TRACING DOCTOR: Chad Vickers Interpretating Date/Time 04/30/2017 14:22:50
--- NOTE | 2017-04-30 14:25 | EKG ---
Date Performed: 04/30/2017 Time Performed: 05:59:14 PTAGE: 51 years EKG: Sinus rhythm Inferior T wave changes are nonspecific Low QRS voltages in limb leads Continued evolution of an inf erior myocardial infarction Borderline ECG PREVIOUS TRACING : 04/29/2017 23.47 DOCTOR: Chad Vickers Interpretating Date/Time 04/30/2017 14:23:50
--- NOTE | 2017-04-30 14:25 | EKG ---
Date Performed: 04/29/2017 Time Performed: 23:47:16 PTAGE: 51 years EKG: Sinus rhythm Indeterminate axis Inferior T wave changes are nonspecific Low QRS voltages in limb leads Evolution of an inferior wall myocardial infarction Borderline ECG PREVIOUS TRACING : 04/29/2017 19.49 DOCTOR: Chad Vickers Interpretating Date/Time 04/30/2017 14:23:11
[2017-04-30] MEDS ORDERED: IOHEXOL 350 MG/ML 100 ML BTL (for Cath Lab) OTHER ONE (15:28)
--- NOTE | 2017-04-30 15:32 | ECHRPT ---
Indication: STEMI CONCLUSIONS Normal left ventricular size. Wall thickness is normal. The left ventricular systolic function is normal with an estimated ejection fraction of 55%. Doppler parameters are consistent with impaired left ventricular relaxtion (grade 1 diastolic dysfun ction). Trace MR. BP: 110 / 73 HR: Rhythm: Sinus MEASUREMENTS (Male / Female) Normal Values Technical Quality:Fair 2D ECHO LV Diastolic Diameter PLAX 4.3 cm 4.2 - 5.9 / 3.9 - 5.3 cm LV Systolic Diameter PLAX 3.3 cm IVS Diastolic Thickness 0.7 cm 0.6 - 1.0 / 0.6 - 0.9 cm LVPW Diastolic Thickness 0.8 cm 0.6 - 1.0 / 0.6 - 0.9 cm LV Relative Wall Thickness 0.4 LVOT Diameter 2.0 cm Aortic Root Diameter 3.1 cm LA Systolic Diameter LX 2.5 cm 3.0 - 4.0 / 2.7 - 3.8 cm M-MODE AV Cusp Separation MM 2.1 cm DOPPLER AV Peak Velocity 120.0 cm/s AV Peak Gradient 5.8 mmHg AV Mean Gradient 3.0 mmHg AV Velocity Time Integral 23.2 cm LVOT Peak Velocity 73.7 cm/s LVOT Peak Gradient 2.2 mmHg LVOT Velocity Time Integral 14.8 cm AV Area Cont Eq vti 2.0 cm AV Area Cont Eq pk 1.9 cm Mitral E Point Velocity 80.5 cm/s Mitral A Point Velocity 99.2 cm/s Mitral E to A Ratio 0.8 LV E' Lateral Velocity 9.6 cm/s Mitral E to LV E' Lateral Ratio 8.4 LV E' Septal Velocity 6.3 cm/s Mitral E to LV E' Septal Ratio 12.7 PV Peak Velocity 77.5 cm/s PV Peak Gradient 2.4 mmHg FINDINGS LEFT VENTRICLE Normal left ventricular size. Normal left ventricular size. Wall thickness is normal. The left ventricular systolic function is normal with an estimated ejection fraction in the range of 55%. Doppler parameters are consistent with impaired left ventricular relaxtion (grade 1 diastolic dysfun ction). RIGHT VENTRICLE Normal right ventricular size and systolic function. LEFT ATRIUM The left atrial size is normal. RIGHT ATRIUM The right atrial size is normal. ATRIAL SEPTUM No atrial level shunt is demonstrated by color flow Doppler interrogation. AORTA The aortic root and proximal ascending aorta are normal in size on limited imaging. MITRAL VALVE Structurally normal mitral valve. Trace mitral valve regurgitation. AORTIC VALVE Trileaflet aortic valve. No aortic valve regurgitation. TRICUSPID VALVE Structurally normal tricuspid valve. No tricuspid regurgitation. Normal estimated pulmonary pressures. PULMONARY VALVE No pulmonary valve regurgitation or stenosis. VESSELS The inferior vena cava (IVC) is normal in size. PERICARDIUM No pericardial effusion. Lee Latham MD, FACC (Electronically Signed) Final Date:30 April 2017 15:31
--- NOTE | 2017-04-30 17:08 | PD.CARD.PN ---
Subjective Subjective Remarks Doing well No complaints Did have abdominal pain this morning, but unable to urinate, did well after straight cathing Objective Medications Current Medications Medications (Trade) Dose Ordered Sig/Peter Route Start Time Stop Time Status Last Admin (NS Flush) 2 ml UNSCH PRN IVF 04/29/17 20:00 Nitroglycerin/ Dextrose 250 ml @ 3 mls/hr TITRATE PRN IV 04/29/17 20:00 04/29/17 20:12 (Proair Hfa Inh) 2 puff Q6HR PRN INH 04/29/17 21:15 04/30/17 03:30 (PROzac) 40 mg DAILY PO 04/30/17 09:00 04/30/17 09:00 (Tylenol) 325 mg Q4H PRN PO 04/29/17 21:15 (Percocet 5-325 Mg) 1 tab Q4H PRN PO 04/29/17 21:15 04/29/17 23:14 (Percocet 10-325 Mg) 1 tab Q4H PRN PO 04/29/17 21:15 04/30/17 03:13 (Morphine Inj) 2 mg Q30M PRN IV PUSH 04/29/17 21:15 (Aspirin Chew) 81 mg DAILY PO 04/30/17 09:00 04/30/17 09:00 (Plavix) 75 mg DAILY PO 04/30/17 09:00 04/30/17 09:00 (Atropine Inj) 0.5 mg UNSCH PRN IV PUSH 04/29/17 21:15 Sodium Chloride 250 ml @ 500 mls/hr ONCE PRN IV 04/29/17 21:15 04/30/17 21:14 (Zofran Inj) 4 mg Q4H PRN IV PUSH 04/29/17 21:15 (Prinivil) 5 mg DAILY PO 04/30/17 09:00 04/30/17 09:00 (Lipitor) 80 mg HS PO 04/30/17 21:00 Vital Signs / I&O Vital Signs Date Time Temp Pulse Resp B/P (MAP) Pulse Ox O2 Delivery O2 Flow Rate FiO2 04/30/17 16:00 80 04/30/17 15:30 98.7 80 20 101/63 (76) 100 04/30/17 15:00 76 04/30/17 14:00 82 04/30/17 13:00 80 04/30/17 12:00 86 04/30/17 11:00 84 04/30/17 11:00 97.6 78 18 127/86 (100) 98 04/30/17 10:00 84 04/30/17 09:00 Room Air 04/30/17 09:00 78 04/30/17 08:00 82 04/30/17 07:30 98.4 84 20 130/89 (103) 98 04/30/17 07:00 84 04/30/17 06:00 71 04/30/17 05:00 78 04/30/17 04:00 76 04/30/17 03:20 100 Nasal Cannula 2.00 04/30/17 03:20 97.7 83 18 110/73 (85) 100 04/30/17 03:00 74 04/30/17 02:00 75 04/30/17 01:00 83 04/30/17 00:00 84 04/29/17 23:00 85 04/29/17 23:00 97.5 82 18 124/80 (95) 100 04/29/17 23:00 100 Nasal Cannula 2.00 04/29/17 22:00 88 04/29/17 21:30 98.1 87 18 141/80 (100) 99 04/29/17 21:30 99 Nasal Cannula 2.00 04/29/17 20:16 99 16 154/81 (105) 98 Room Air 04/29/17 20:16 98 Room Air 04/29/17 20:12 99 154/81 04/29/17 19:34 98.4 84 16 169/84 (112) 96 Room Air 04/29/17 19:30 89 I/O 04/29/17 04/29/17 04/29/17 04/30/17 04/30/17 04/30/17 07:00 15:00 23:00 07:00 15:00 23:00 Intake Total 1180 ml Output Total 800 ml Balance 380 ml Intake Oral 480 ml IV Total 700 ml Output Urine Total 800 ml # Bowel Movements 0 Physical Exam GENERAL: NAD, AAOx3 SKIN: Warm and dry. HEAD: Atraumatic. Normocephalic. EYES: Pupils equal and round. No scleral icterus. No injection or drainage. ENT: No nasal bleeding or discharge. Mucous membranes pink and moist. NECK: Trachea midline. No JVD. CARDIOVASCULAR: Regular rate and rhythm. RESPIRATORY: No accessory muscle use. Clear to auscultation. Breath sounds equal bilaterally. GASTROINTESTINAL: Abdomen soft, non-tender, nondistended. Hepatic and splenic margins not palpable. MUSCULOSKELETAL: Extremities without clubbing, cyanosis, or edema. No obvious deformities. Right femoral no hematoma, mild ecchymosis NEUROLOGICAL: Awake and alert. No obvious cranial nerve deficits. Motor grossly within normal limits. Five out of 5 muscle strength in the arms and legs. Normal speech. PSYCHIATRIC: Appropriate mood and affect; insight and judgment normal. Laboratory Laboratory Tests Test 04/29/17 19:50 04/30/17 06:15 04/30/17 13:28 White Blood Count 11.7 TH/MM3 9.3 TH/MM3 Red Blood Count 4.07 MIL/MM3 3.74 MIL/MM3 Hemoglobin 12.2 GM/DL 11.2 GM/DL Bedside Hemoglobin 12.2 G/DL Hematocrit 36.3 % 33.5 % Bedside Hematocrit 36.0 % Mean Corpuscular Volume 89.1 FL 89.8 FL Mean Corpuscular Hemoglobin 29.9 PG 29.9 PG Mean Corpuscular Hemoglobin Concent 33.6 % 33.4 % Red Cell Distribution Width 13.6 % 13.8 % Platelet Count 256 TH/MM3 233 TH/MM3 Mean Platelet Volume 8.6 FL 8.4 FL Neutrophils (%) (Auto) 64.5 % 59.6 % Lymphocytes (%) (Auto) 25.4 % 30.8 % Monocytes (%) (Auto) 7.7 % 6.7 % Eosinophils (%) (Auto) 1.9 % 2.4 % Basophils (%) (Auto) 0.5 % 0.5 % Neutrophils # (Auto) 7.5 TH/MM3 5.5 TH/MM3 Lymphocytes # (Auto) 3.0 TH/MM3 2.8 TH/MM3 Monocytes # (Auto) 0.9 TH/MM3 0.6 TH/MM3 Eosinophils # (Auto) 0.2 TH/MM3 0.2 TH/MM3 Basophils # (Auto) 0.1 TH/MM3 0.0 TH/MM3 CBC Comment DIFF FINAL DIFF FINAL Differential Comment Prothrombin Time 9.9 SEC Prothromb Time International Ratio 0.9 RATIO Activated Partial Thromboplast Time 31.5 SEC Bedside Sodium 140 MMOL/L Bedside Potassium 3.5 MMOL/L Bedside Chloride 104 MMOL/L Bedside Blood Urea Nitrogen 14 MG/DL Bedside Creatinine 1.0 MG/DL Bedside Glucose 157 MG/DL Calcium Level 8.9 MG/DL 8.1 MG/DL Magnesium Level 1.9 MG/DL Total Creatine Kinase 199 U/L Creatine Kinase MB 12.0 NG/ML Creatine Kinase MB % 6.0 % Troponin I 3.55 NG/ML B-Type Natriuretic Peptide 74 PG/ML Blood Urea Nitrogen 11 MG/DL Creatinine 0.61 MG/DL Random Glucose 89 MG/DL Sodium Level 140 MEQ/L Potassium Level 3.8 MEQ/L Chloride Level 109 MEQ/L Carbon Dioxide Level 24.5 MEQ/L Anion Gap 7 MEQ/L Estimat Glomerular Filtration Rate 103 ML/MIN Hemoglobin A1c 5.7 % Triglycerides Level 154 MG/DL Cholesterol Level 185 MG/DL LDL Cholesterol 105 MG/DL HDL Cholesterol 49.5 MG/DL Cholesterol/HDL Ratio 3.73 RATIO Urine Color LIGHT-YELLOW Urine Turbidity CLEAR Urine pH 6.0 Urine Specific [place] 1.013 Urine Protein NEG mg/dL Urine Glucose (UA) NEG mg/dL Urine Ketones NEG mg/dL Urine Occult Blood TRACE Urine Nitrite NEG Urine Bilirubin NEG Urine Urobilinogen LESS THAN 2.0 MG/DL Urine Leukocyte Esterase SMALL Urine RBC 1 /hpf Urine WBC 3 /hpf Urine Mucus FEW /lpf Microscopic Urinalysis Comment CATH-CULT NOT IND Assessment and Plan Problem List: (1) STEMI (ST elevation myocardial infarction) ICD Codes: I21.3 - ST elevation (STEMI) myocardial infarction of unspecified site Status: Acute (2) CAD (coronary artery disease) ICD Codes: I25.10 - Atherosclerotic heart disease of [place] coronary artery without angina pectoris (3) COPD (chronic obstructive pulmonary disease) ICD Codes: J44.9 - Chronic obstructive pulmonary disease, unspecified Status: Acute Assessment and Plan 1) STEMI s/p [place] THIERRY (2.5x15) to RCA ASA/Plavix/Statin/CARTER-I Will add low dose BB 2) EF 55-60%, Grade 1 DD 3) Plan for possible discharge tomorrow morning if stable 4) Tobacco cessation Problem Qualifiers (1) STEMI (ST elevation myocardial infarction): Qualified Codes: I21.11 - ST elevation (STEMI) myocardial infarction involving right coronary artery Aurelio Duque DO Apr 30, 2017 17:08
[2017-04-30] MEDS: METOPROLOL TARTRATE 25 MG TAB PO SCH (20:51)
[2017-04-30] MEDS: ALPRAZolam 0.25 MG TAB PO SCH (20:51)
[2017-04-30] MEDS ORDERED: ATORVASTATIN 80 MG TAB PO SCH (21:00)
[2017-05-01] VITALS (10 sets, daily range): BP systolic 87–104; BP diastolic 63; PULSE 57–80; RESP 18–20; TEMP 97.6–97.9; O2SAT 100
[2017-05-01] MEDS ORDERED: INFLUENZA VIRUS VACCINE (QUADRIVALENT) 0.5 ML SYR IM ONE (03:30)
[2017-05-01 06:31] LABS: BASOPHIL # 0.1 TH/MM3 (0-0.2); BASOPHIL % 0.6 % (0.0-2.0); EOSINOPHIL # 0.3 TH/MM3 (0-0.4); EOSINOPHIL % 3.2 % (0.0-4.0); HEMATOCRIT 31.9 % (35.0-46.0); HEMO FLAGS DIFF FINAL; LYMPH % 25.9 % (9.0-44.0); LYMPHOCYTE # 2.4 TH/MM3 (1.0-4.8); MEAN CELL VOLUME 91.3 FL (80.0-100.0); MEAN CORPUSCULAR HEMOGLOBIN 30.3 PG (27.0-34.0); MEAN CORPUSCULAR HGB CONC 33.2 % (32.0-36.0); MONO % 6.4 % (0.0-8.0); NEUT % 63.9 % (16.0-70.0); PLATELET COUNT 218 TH/MM3 (150-450); RED CELL DISTRIBUTION WIDTH 14.2 % (11.6-17.2); WHITE BLOOD COUNT 9.4 TH/MM3 (4.0-11.0)
[2017-05-01 06:59] LABS: BICARBONATE 26.3 MEQ/L (21.0-32.0); POTASSIUM 4.1 MEQ/L (3.5-5.1)
[2017-05-01] MEDS: ALPRAZolam 0.25 MG TAB PO SCH (08:00)
[2017-05-01] MEDS: ASPIRIN 81 MG CHEW TAB PO SCH (08:08)
[2017-05-01] MEDS: CLOPIDOGREL 75 MG TAB PO SCH (08:08)
[2017-05-01] MEDS: METOPROLOL TARTRATE 25 MG TAB PO SCH (08:09)
[2017-05-01] MEDS: FLUoxetine HCL 20 MG CAP PO SCH (08:09)
[2017-05-01] MEDS: LISINOPRIL 5 MG TAB PO SCH (08:10)
[2017-05-01] MEDS ORDERED: NITR1SUB3 SL (09:53)
[2017-05-01] MEDS ORDERED: METO25TA3 PO (09:53)
[2017-05-01] MEDS ORDERED: ASPI81CH25 PO (09:53)
[2017-05-01] MEDS ORDERED: PLAV75TA29 PO (09:53)
[2017-05-01] MEDS ORDERED: ATOR1TAB18 PO (09:53)
[2017-05-01] MEDS ORDERED: LISI-519 PO (09:53)
--- NOTE | 2017-05-01 09:53 | HHI.DCPOC ---
Discharge Care Plan Diagnosis: (1) COPD (chronic obstructive pulmonary disease) (2) CAD (coronary artery disease) (3) STEMI (ST elevation myocardial infarction) Your Health Problems Are: Difficulty with ADL Exercise Tolerance Goals to Promote Your Health * To prevent worsening of your condition and complications * To maintain your health at the optimal level Directions to Meet Your Goals Take your medications as prescribed Follow your dietary instruction Follow activity as directed Keep your appointments as scheduled Take your immunizations and boosters as scheduled If your symptoms worsen call your PCP, if no PCP go to Urgent Care Center or Emergency Room Smoking is Dangerous to Your Health. Avoid second hand smoke Call the 24-hour hour crisis hotline for domestic abuse at Erlin Mcbride MD May 01, 2017 09:53
--- NOTE | 2017-05-01 09:56 | HHI.DS ---
Discharge Summary Admission Date Apr 29, 2017 at 20:22 Discharge Date: May 01, 2017 Admitting Diagnosis STEMI (1) STEMI (ST elevation myocardial infarction) ICD Code: I21.3 - ST elevation (STEMI) myocardial infarction of unspecified site Diagnosis: Principal Status: Acute Procedures Cardiac catheterization Brief History - From Admission This is a 51-year-old female with a history of COPD, tobacco abuse and IBS. Patient reports of burning neck pain for the past 3 days similar to her symptoms from GERD. She also has been nauseous and had vomited several times associated with diaphoresis which she thought was related to her hormonal changes. On the night of admission, she also developed severe left-sided burning chest pain with tingling of the left upper extremity associated with shortness of breath prompting ER evaluation and was diagnosed with inferior wall STEMI. Underwent urgent cardiac catheterization with RCA stenting. Consultation has been requested by her attending Dr. Duque whom I discussed the case with. She also developed abdominal pain this morning secondary to her very retention relieved with Ball catheter insertion. Denies fever, chills, back pain and UTI symptoms. All other systems reviewed negative CBC/BMP: 05/01/17 0555 05/01/17 0555 Significant Findings Laboratory Tests Test 04/29/17 19:50 04/30/17 06:15 04/30/17 13:28 05/01/17 05:55 White Blood Count 11.7 TH/MM3 (4.0-11.0) Bedside Hematocrit 36.0 % (38.0-51.0) Activated Partial Thromboplast Time 31.5 SEC (24.3-30.1) Bedside Glucose 157 MG/DL (60-95) Total Creatine Kinase 199 U/L (26-192) Creatine Kinase MB 12.0 NG/ML (0.5-3.6) Creatine Kinase MB % 6.0 % (0.0-4.0) Troponin I 3.55 NG/ML (0.02-0.05) Red Blood Count 3.74 MIL/MM3 (4.00-5.30) 3.50 MIL/MM3 (4.00-5.30) Hemoglobin 11.2 GM/DL (11.6-15.3) 10.6 GM/DL (11.6-15.3) Hematocrit 33.5 % (35.0-46.0) 31.9 % (35.0-46.0) Calcium Level 8.1 MG/DL (8.5-10.1) Chloride Level 109 MEQ/L (98-107) Triglycerides Level 154 MG/DL (42-150) LDL Cholesterol 105 MG/DL (0-99) Urine Occult Blood TRACE (NEG) Urine Leukocyte Esterase SMALL (NEG) Urine Mucus FEW /lpf (OCC) Estimat Glomerular Filtration Rate 88 ML/MIN (>89) Imaging Last Impressions Chest X-Ray 04/29/171955 Signed Impressions: Service Date/Time: Saturday, April 29, 2017 19:52 - CONCLUSION: No acute disease. Ronaldo Bagley MD PE at Discharge GENERAL: Well-developed, well-nourished in no distress SKIN: Warm and dry. HEAD: Atraumatic. Normocephalic. EYES: Pupils equal and round. No scleral icterus. No injection or drainage. ENT: No nasal bleeding or discharge. Mucous membranes pink and moist. NECK: Trachea midline. No JVD. CARDIOVASCULAR: Regular rate and rhythm. RESPIRATORY: No accessory muscle use. Clear to auscultation. Breath sounds equal bilaterally. GASTROINTESTINAL: Abdomen soft, non-tender, nondistended. MUSCULOSKELETAL: Extremities without clubbing, cyanosis, or edema. No obvious deformities. NEUROLOGICAL: Awake and alert. No obvious cranial nerve deficits. Motor grossly within normal limits. Five out of 5 muscle strength in the arms and legs. Normal speech. PSYCHIATRIC: Appropriate mood and affect; insight and judgment normal. Hospital Course This is a 51-year-old female with a history of COPD, tobacco abuse and IBS. She presents with chest pain, nausea, vomiting, shortness of breath and diaphoresis. EKG shows ST elevation in the inferior wall with elevated cardiac enzymes Inferior wall STEMI. Underwent urgent cardiac catheterization with RCA stenting. Stable continue aspirin, Plavix, Lopressor, lisinopril and Lipitor. Risk factor modification including tobacco cessation. A1c 5.7. COPD. Albuterol as needed Urinary retention. Resolved. DVT prophylaxis with SCD and early ambulation Pt Condition on Discharge: Stable Discharge Disposition: Discharge Home Discharge Time: > 30 minutes Discharge Instructions DIET: Follow Instructions for: Heart Healthy Diet Activities you can perform: Regular-No Restrictions Activities to Avoid: Strenuous Activity, Driving Follow up Referrals: Cardiology - 1 Week PCP Follow-up - 1 Week New Medications: Nitroglycerin SL (Nitroglycerin SL) 0.4 Mg Subl 0.4 MG SL DIRECTED PRN for CHEST PAIN, #100 TAB.SL 0 Refills ONE TABLET UNDER THE TONGUE NEEDED FOR CHEST PAIN, MAY REPEAT EVERY FIVE MINUTES FOR A TOTAL OF 3 DOSES OR CALL 911 IF NO RELIEF Aspirin (Aspirin Low Strength) 81 Mg Chew 81 MG PO DAILY for Prevent Blood Clot, #30 EA Atorvastatin (Atorvastatin) 80 Mg Tab 80 MG PO HS for Cholesterol Management, #30 TAB Clopidogrel (Plavix) 75 Mg Tab 75 MG PO DAILY for Prevent Blood Clot, #30 TAB Lisinopril (Lisinopril) 5 Mg Tab 5 MG PO DAILY for Blood Pressure Management, #30 TAB Metoprolol Tartrate (Metoprolol Tartrate) 25 Mg Tab 12.5 MG PO Q12HR for Blood Pressure Management, #60 TAB Continued Medications: Albuterol 8.5 GM Inh (Proair Hfa 8.5 GM Inh) 90 Mcg/Act Aer 2 PUFF INH Q4-6H PRN for SHORTNESS OF BREATH, #1 INHALER 0 Refills 108 mcg/actuation Fluoxetine (Fluoxetine) 40 Mg Cap 40 CAP PO DAILY, #30 CAP 0 Refills Additional Information I spent 35 minutes [id number] with the patient or on the keyes discussing the patient's disposition, prognosis, and plan of care with patient's caregivers. Over half the time spent was devoted to counseling the patient regarding placement in coordinating care with caregivers and case management. Erlin Mcbride MD May 01, 2017 09:56
--- NOTE | 2017-05-01 12:44 | PD.CARD.PN ---
Subjective Subjective Remarks Doing well, no chest pain/SOB/abdominal pain No urinary retention Objective Medications Current Medications Medications (Trade) Dose Ordered Sig/Peter Route Start Time Stop Time Status Last Admin (NS Flush) 2 ml UNSCH PRN IVF 04/29/17 20:00 Nitroglycerin/ Dextrose 250 ml @ 3 mls/hr TITRATE PRN IV 04/29/17 20:00 04/29/17 20:12 (Proair Hfa Inh) 2 puff Q6HR PRN INH 04/29/17 21:15 04/30/17 03:30 (PROzac) 40 mg DAILY PO 04/30/17 09:00 05/01/17 08:09 (Tylenol) 325 mg Q4H PRN PO 04/29/17 21:15 (Percocet 5-325 Mg) 1 tab Q4H PRN PO 04/29/17 21:15 04/29/17 23:14 (Percocet 10-325 Mg) 1 tab Q4H PRN PO 04/29/17 21:15 04/30/17 21:08 (Morphine Inj) 2 mg Q30M PRN IV PUSH 04/29/17 21:15 (Aspirin Chew) 81 mg DAILY PO 04/30/17 09:00 05/01/17 08:08 (Plavix) 75 mg DAILY PO 04/30/17 09:00 05/01/17 08:08 (Atropine Inj) 0.5 mg UNSCH PRN IV PUSH 04/29/17 21:15 (Zofran Inj) 4 mg Q4H PRN IV PUSH 04/29/17 21:15 (Prinivil) 5 mg DAILY PO 04/30/17 09:00 04/30/17 09:00 (Lipitor) 80 mg HS PO 04/30/17 21:00 04/30/17 20:51 (Lopressor) 12.5 mg Q12HR PO 04/30/17 21:00 05/01/17 08:09 (Xanax) 0.25 mg BID@0800,1999 PO 04/30/17 20:00 04/30/17 20:51 Vital Signs / I&O Vital Signs Date Time Temp Pulse Resp B/P (MAP) Pulse Ox O2 Delivery O2 Flow Rate FiO2 05/01/17 10:00 70 05/01/17 09:00 66 05/01/17 08:00 97.9 66 18 104/63 (77) 100 05/01/17 08:00 66 05/01/17 07:00 70 05/01/17 06:00 60 05/01/17 05:00 80 05/01/17 04:00 97.6 80 20 87/63 (71) 100 05/01/17 03:00 60 05/01/17 02:00 57 05/01/17 00:00 66 04/30/17 23:00 69 04/30/17 23:00 98.6 80 20 103/66 (78) 100 04/30/17 23:00 04/30/17 22:00 67 04/30/17 20:00 76 04/30/17 19:00 98.6 76 20 119/67 (84) 96 04/30/17 18:00 80 04/30/17 17:00 78 04/30/17 16:00 80 04/30/17 15:30 98.7 80 20 101/63 (76) 100 04/30/17 15:00 76 04/30/17 14:00 82 04/30/17 13:00 80 I/O 04/30/17 04/30/17 04/30/17 05/01/17 05/01/17 05/01/17 07:00 15:00 23:00 07:00 15:00 23:00 Intake Total 1180 ml 1120 ml 240 ml Output Total 800 ml 1600 ml Balance 380 ml -480 ml 240 ml Intake Oral 480 ml 620 ml 240 ml IV Total 700 ml 500 ml Output Urine Total 800 ml 1600 ml # Voids 3 # Bowel Movements 0 Physical Exam GENERAL: NAD, AAOx3 SKIN: Warm and dry. HEAD: Atraumatic. Normocephalic. EYES: Pupils equal and round. No scleral icterus. No injection or drainage. ENT: No nasal bleeding or discharge. Mucous membranes pink and moist. NECK: Trachea midline. No JVD. CARDIOVASCULAR: Regular rate and rhythm. RESPIRATORY: No accessory muscle use. Clear to auscultation. Breath sounds equal bilaterally. GASTROINTESTINAL: Abdomen soft, non-tender, nondistended. Hepatic and splenic margins not palpable. MUSCULOSKELETAL: Extremities without clubbing, cyanosis, or edema. No obvious deformities. Right femoral ecchymosis, no hematoma, no bruit NEUROLOGICAL: Awake and alert. No obvious cranial nerve deficits. Motor grossly within normal limits. Five out of 5 muscle strength in the arms and legs. Normal speech. PSYCHIATRIC: Appropriate mood and affect; insight and judgment normal. Laboratory Laboratory Tests Test 04/30/17 13:28 05/01/17 05:55 Urine Color LIGHT-YELLOW Urine Turbidity CLEAR Urine pH 6.0 Urine Specific Larue 1.013 Urine Protein NEG mg/dL Urine Glucose (UA) NEG mg/dL Urine Ketones NEG mg/dL Urine Occult Blood TRACE Urine Nitrite NEG Urine Bilirubin NEG Urine Urobilinogen LESS THAN 2.0 MG/DL Urine Leukocyte Esterase SMALL Urine RBC 1 /hpf Urine WBC 3 /hpf Urine Mucus FEW /lpf Microscopic Urinalysis Comment CATH-CULT NOT IND White Blood Count 9.4 TH/MM3 Red Blood Count 3.50 MIL/MM3 Hemoglobin 10.6 GM/DL Hematocrit 31.9 % Mean Corpuscular Volume 91.3 FL Mean Corpuscular Hemoglobin 30.3 PG Mean Corpuscular Hemoglobin Concent 33.2 % Red Cell Distribution Width 14.2 % Platelet Count 218 TH/MM3 Mean Platelet Volume 8.7 FL Neutrophils (%) (Auto) 63.9 % Lymphocytes (%) (Auto) 25.9 % Monocytes (%) (Auto) 6.4 % Eosinophils (%) (Auto) 3.2 % Basophils (%) (Auto) 0.6 % Neutrophils # (Auto) 6.0 TH/MM3 Lymphocytes # (Auto) 2.4 TH/MM3 Monocytes # (Auto) 0.6 TH/MM3 Eosinophils # (Auto) 0.3 TH/MM3 Basophils # (Auto) 0.1 TH/MM3 CBC Comment DIFF FINAL Differential Comment Blood Urea Nitrogen 12 MG/DL Creatinine 0.70 MG/DL Random Glucose 99 MG/DL Calcium Level 8.5 MG/DL Sodium Level 139 MEQ/L Potassium Level 4.1 MEQ/L Chloride Level 106 MEQ/L Carbon Dioxide Level 26.3 MEQ/L Anion Gap 7 MEQ/L Estimat Glomerular Filtration Rate 88 ML/MIN Assessment and Plan Problem List: (1) STEMI (ST elevation myocardial infarction) ICD Codes: I21.3 - ST elevation (STEMI) myocardial infarction of unspecified site Status: Acute (2) CAD (coronary artery disease) ICD Codes: I25.10 - Atherosclerotic heart disease of [place] coronary artery without angina pectoris (3) COPD (chronic obstructive pulmonary disease) ICD Codes: J44.9 - Chronic obstructive pulmonary disease, unspecified Status: Acute Assessment and Plan 1) STEMI s/p Elfego THIERRY (2.5x15) to RCA ASA/Plavix/Statin/CARTER-I/BB 2) EF 55-60%, Grade 1 DD 3) Cardiovascularly stable for discharge Discussed Plavix, will attempt to get help to get Plavix 4) Tobacco cessation Problem Qualifiers (1) STEMI (ST elevation myocardial infarction): Qualified Codes: I21.11 - ST elevation (STEMI) myocardial infarction involving right coronary artery Aurelio Duque DO May 01, 2017 12:44
== END 2017-05-01 12:50 | disposition home or self-care (01) | DRG 247 ==
LOC: NEPE 19:33 → NEDA 20:22 → HCIN 21:10
PROVIDERS: ADMIT Internal Medicine; ATTEND Internal Medicine
PROC: 027034Z Dilation of Coronary Artery, One Artery with Drug-eluting Intraluminal Device, Percutaneous Approach (ICD-10-PCS; 2017-04-29)
PROC: 4A023N7 Measurement of Cardiac Sampling and Pressure, Left Heart, Percutaneous Approach (ICD-10-PCS; 2017-04-29)
PROC: B2111ZZ Fluoroscopy of Multiple Coronary Arteries using Low Osmolar Contrast (ICD-10-PCS; 2017-04-29)
PROC: B2151ZZ Fluoroscopy of Left Heart using Low Osmolar Contrast (ICD-10-PCS; 2017-04-29)
PROC: 0T9B70Z Drainage of Bladder with Drainage Device, Via Natural or Artificial Opening (ICD-10-PCS; principal; 2017-04-30)
DX: I21.11 ST elevation (STEMI) myocardial infarction involving right coronary artery (principal); J44.9 Chronic obstructive pulmonary disease, unspecified; I25.119 Atherosclerotic heart disease of native coronary artery with unspecified angina pectoris; F17.210 Nicotine dependence, cigarettes, uncomplicated; Z82.49 Family history of ischemic heart disease and other diseases of the circulatory system; R11.2 Nausea with vomiting, unspecified; K21.9 Gastro-esophageal reflux disease without esophagitis; R33.9 Retention of urine, unspecified; Z23 Encounter for immunization
CPT/HCPCS: 71010; 80048; 80061; 81001; 82310; 82435; 82550; 82552; 82565; 82947; 83036; 83735; 83880; 84132; 84295; 84484; 84520; 85002; 85025; 85610; 85730; 90686; 92941; 93005; 93306; 93458; 96374; 96375; C1725; C1769; C1874; C1887; C1893; J0171; J0461; J1644; J2250; J3010; J7030; J7040; Q2038; Q9967

== ENCOUNTER 2017-10-26 14:23 | Emergency (ER) | payer OTHER ==
[~2017-10-26] VITALS: Ht 157.5 cm; Wt 63.5 kg
[~2017-10-26 14:23] MED LIST changes: +ASPI81CH25 PO; +ATOR80TA45 PO; +LISI-519 PO; +METO25TA3 PO; +NITR1SUB3 SL; +PLAV75TA29 PO
[2017-10-26 14:56] VITALS: BP 174/90; PULSE 78; RESP 18; TEMP 98.5; O2SAT 99
--- NOTE | 2017-10-26 16:00 | RADRPT ---
EXAM DATE/TIME: 10/26/2017 15:38 [facility] COMPARISON: No previous studies available for comparison. INDICATIONS : Cough and shortness of breath with chest tightness. MEDICAL HISTORY : Chronic obstructive pulmonary disease. Myocardial infarction, 2016. SURGICAL HISTORY : Cardiac stent, 2017. ENCOUNTER: Initial ACUITY: 3 weeks PAIN SCORE: 2/10 LOCATION: Bilateral chest FINDINGS: PA and lateral views of the chest demonstrate the lungs to be symmetrically aerated without evidence of mass, infiltrate or effusion. The cardiomediastinal contours are unremarkable. Osseous structure s are intact. CONCLUSION: No acute disease. Hernandez Westbrook MD FACR on October 26, 2017 at 15:53 Board Certified Radiologist. This report was verified electronically.
[2017-10-26 16:15] LABS: AUTOMATED NEUTROPHIL # 13.3 TH/MM3 (1.8-7.7); BASOPHIL % 0.1 % (0.0-2.0); HEMATOCRIT 37.3 % (35.0-46.0); HEMOGLOBIN 12.4 GM/DL (11.6-15.3); LYMPH % 9.2 % (9.0-44.0); LYMPHOCYTE # 1.4 TH/MM3 (1.0-4.8); MEAN CELL VOLUME 94.2 FL (80.0-100.0); MEAN CORPUSCULAR HEMOGLOBIN 31.4 PG (27.0-34.0); MEAN CORPUSCULAR HGB CONC 33.3 % (32.0-36.0); MEAN PLATELET VOLUME 8.6 FL (7.0-11.0); MONO % 2.9 % (0.0-8.0); MONOCYTE # 0.4 TH/MM3 (0-0.9); NEUT % 87.8 % (16.0-70.0); PLATELET COUNT 328 TH/MM3 (150-450); RED BLOOD COUNT 3.96 MIL/MM3 (4.00-5.30); WHITE BLOOD COUNT 15.1 TH/MM3 (4.0-11.0)
[2017-10-26 16:52] LABS: BICARBONATE 24.5 MEQ/L (21.0-32.0); BLOOD UREA NITROGEN 13 MG/DL (7-18); CALCIUM 8.7 MG/DL (8.5-10.1); CHLORIDE 107 MEQ/L (98-107); CREATININE 0.81 MG/DL (0.50-1.00); GLOMERULAR FILTRATION RATE 75 ML/MIN (>89); GLUCOSE,RANDOM 109 MG/DL (74-106); SODIUM (NA) 140 MEQ/L (136-145)
[2017-10-26 16:55] LABS: TROPONIN I LESS THAN 0.02 NG/ML (0.02-0.05)
[2017-10-26] MEDS ORDERED: SODIUM CHLORIDE 0.9% FLUSH 10 ML FLUSH IVF PRN (17:45)
[2017-10-26] MEDS ORDERED: ASPIRIN 81 MG CHEW TAB PO ONE (17:45)
[2017-10-26] MEDS ORDERED: MORPHINE SULFATE 4 MG/ML INJ IV PUSH ONE (17:45)
[2017-10-26] MEDS ORDERED: NITROGLYCERIN 0.4 MG SL 25 TABS/BTL SL ONE (17:45)
[2017-10-26] MEDS ORDERED: methylPREDNISolone SOD SUCC 125 MG/2 ML VIAL IV PUSH ONE (17:45)
[2017-10-26] MEDS ORDERED: SODIUM CHLORID 0.9% 500 ML INJ 500 ML IV ONE (17:45)
--- NOTE | 2017-10-26 17:45 | PD ---
HPI Chief Complaint: Chest Pain Time Seen by Provider: 17:36 Travel History International Travel<30 days: No Contact w/Intl Traveler<30days: No Traveled to known affect area: No History of Present Illness HPI 51-year-old female presents emergency department with ongoing shortness of breath, wheezing, cough, and substernal chest pain for the past week. Patient states she started with a cough and cold approximately a month ago where she was seen at [facility] on 06 October with question of sepsis at that time. She refused to be admitted at that time. She was seen by her primary care physician on Sunday and started on Levaquin 750 daily, 20 mg prednisone taper, Advair, and albuterol. Patient was given a prescription for Chantix which she has not started yet. She feels she is not improving and in fact feels worse today than yesterday. She denies recent fever or chills. Cough is nonproductive. Patient is concerned of possible cardiac issues she had a stent placed in April of last year. She states she has not followed up with network diagnostic support specialist that she has not had insurance until August. She has never had a stress test since her cardiac cath and stent placement by Dr. Duque. She currently is on Plavix 75 mg daily. She states chest pain currently seems more related to her cough but she is concerned about possible heart problem. Patient has no known drug allergies. PFSH Past Medical History Hx Anticoagulant Therapy: Yes Arthritis: Yes Anxiety: No Depression: Yes Cancer: No Cardiovascular Problems: Yes ([place] APR 2017) High Cholesterol: No Chest Pain: Yes COPD: Yes Diabetes: No Diminished Hearing: No Gastrointestinal Disorders: Yes (IBS) Genitourinary: No Immune Disorder: No Musculoskeletal: Yes Neurologic: Yes Psychiatric: Yes Reproductive: No Respiratory: Yes Immunizations Current: Yes Migraines: Yes : 4 Para: 2 Miscarriage: 2 Tubal Ligation: Yes Past Surgical History Body Medical Devices: stent to RCA 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) Tobacco Use: Yes (1 ppd) Substance Use: No Allergies-Medications (Allergen,Severity, Reaction): Coded Allergies: No Known Allergies (Verified Adverse Reaction, Unknown, 10/26/17) Reported Meds & Prescriptions Reported Meds & Active Scripts Active Tussionex Pennkinetic Ext 12 HR Liq (Hydrocodone-Chlorpheniramine 12 HR Liq) 10- 8 Mg/5 Ml Susp 5 Ml PO Q12H PRN Nitroglycerin SL (Nitroglycerin) 0.4 Mg Subl 0.4 Mg SL DIRECTED PRN ONE TABLET UNDER THE TONGUE NEEDED FOR CHEST PAIN, MAY REPEAT EVERY FIVE MINUTES FOR A TOTAL OF 3 DOSES OR CALL 911 IF NO RELIEF Aspirin Low Strength (Aspirin) 81 Mg Chew 81 Mg PO DAILY Lisinopril 5 Mg Tab 5 Mg PO DAILY Metoprolol Tartrate 25 Mg Tab 12.5 Mg PO Q12HR Atorvastatin (Atorvastatin Calcium) 80 Mg Tab 80 Mg PO HS Plavix (Clopidogrel Bisulfate) 75 Mg Tab 75 Mg PO DAILY Reported Ventolin Hfa 18 GM Inh (Albuterol Sulfate) 90 Mcg/Act Aer 2 Puff INH Q4-6H PRN Symbicort Inh (Budesonide/Formoterol Fumarate) 160-4.5 Mcg/Act Aero 2 Puff INH Q12HR Levaquin (Levofloxacin) 750 Mg Tablet 750 Mg PO DAILY Tessalon Perles (Benzonatate) 100 Mg Cap 100 Mg PO TID PRN Prednisone 20 Mg Tab 20 Mg PO DIRECTED 40 MG twice a day x 3 days, then 20 MG daily x 3 days, then 10 MG daily x 3 days Meloxicam 15 Mg Tab 15 Mg PO DAILY Review of Systems Except as stated in HPI: all other systems reviewed are Neg General / Constitutional: No: Fever, Chills Eyes: No: Visual changes HENT: No: Headaches Cardiovascular: Positive: Chest Pain or Discomfort (See history of present illness), Dyspnea on exertion, No: Palpitations, Irregular Rhythm, Tachycardia, Diaphoresis, Syncope, Varicosities, Edema, Cyanosis, Varicosities, Phlebitis, Claudication Respiratory: Positive: Cough, Shortness of Breath, Wheezing, No: Sneezing, Orthopnea, Hemoptysis, Night Sweats, Pleuritic Pain Gastrointestinal: No: Nausea, Vomiting, Diarrhea, Abdominal Pain Genitourinary: No: Urgency, Frequency, Dysuria Musculoskeletal: No: Pain Skin: No Rash Neurologic: No: Weakness Psychiatric: No: Depression Endocrine: No: Polydipsia Hematologic/Lymphatic: No: Easy Bruising Physical Exam Narrative GENERAL: Patient appears in mild distress. She is able to talk in full sentences, but does have hacking wheezy cough. SKIN: Warm and dry. Normal color. Normal turgor. No diaphoresis per HEAD: Atraumatic. Normocephalic. EYES: Pupils equal and round. No scleral icterus. No injection or drainage. ENT: No nasal bleeding or discharge. Mucous membranes pink and moist. TMs are clear. Pharynx is clear. Airways patent. NECK: Trachea midline. No JVD. Supple and nontender. CARDIOVASCULAR: Regular rate and rhythm. No murmurs gallops or rubs. RESPIRATORY: No accessory muscle use. Diffuse wheezes and rales throughout to auscultation. Breath sounds equal bilaterally. GASTROINTESTINAL: Abdomen soft, non-tender, nondistended. Hepatic and splenic margins not palpable. MUSCULOSKELETAL: Extremities without clubbing, cyanosis, or edema. No obvious deformities. NEUROLOGICAL: Awake and alert. No obvious cranial nerve deficits. Motor grossly within normal limits. Five out of 5 muscle strength in the arms and legs. Normal speech. PSYCHIATRIC: Appropriate mood and affect; insight and judgment normal. Data Data Last Documented VS Vital Signs Date Time Temp Pulse Resp B/P (MAP) Pulse Ox O2 Delivery O2 Flow Rate FiO2 10/26/17 20:18 10/26/17 19:30 79 17 99 Room Air 10/26/17 14:56 98.5 Orders Orders Electrocardiogram (10/26/17 14:54) Complete Blood Count With Diff (10/26/17 14:54) Basic Metabolic Panel (Bmp) (10/26/17 14:54) Ckmb (Isoenzyme) Profile (10/26/17 14:54) Troponin I (10/26/17 14:54) Chest, Pa & Lat (10/26/17 ) B-Type Natriuretic Peptide (10/26/17 17:42) Prothrombin Time / Inr (Pt) (10/26/17 17:42) Act Partial Throm Time (Ptt) (10/26/17 17:42) Ecg Monitoring (10/26/17 17:42) Bilateral Bp Monitoring (10/26/17 17:42) Iv Access Insert/Monitor (10/26/17 17:42) Oximetry (10/26/17 17:42) Oxygen Administration (10/26/17 17:42) Aspirin Chew (Aspirin Chew) (10/26/17 17:45) Morphine Inj (Morphine Inj) (10/26/17 17:45) Sodium Chloride 0.9% Flush (Ns Flush) (10/26/17 17:45) Nitroglycerin Sl (Nitrostat Sl) (10/26/17 17:45) Sodium Chlorid 0.9% 500 Ml Inj (Ns 500 M (10/26/17 17:45) Methylprednisolone So Succ Inj (Solumedr (10/26/17 17:45) Albuterol-Ipratropium Neb (Duoneb Neb) (10/26/17 17:45) Hepatic Functional Panel (10/26/17 15:24) Troponin I (10/26/17 18:27) Morphine Inj (Morphine Inj) (10/26/17 18:45) Ed Discharge Order (10/26/17 19:34) Labs Laboratory Tests Test 10/26/17 15:24 10/26/17 18:45 10/26/17 19:40 White Blood Count 15.1 TH/MM3 Red Blood Count 3.96 MIL/MM3 Hemoglobin 12.4 GM/DL Hematocrit 37.3 % Mean Corpuscular Volume 94.2 FL Mean Corpuscular Hemoglobin 31.4 PG Mean Corpuscular Hemoglobin Concent 33.3 % Red Cell Distribution Width 15.0 % Platelet Count 328 TH/MM3 Mean Platelet Volume 8.6 FL Neutrophils (%) (Auto) 87.8 % Lymphocytes (%) (Auto) 9.2 % Monocytes (%) (Auto) 2.9 % Eosinophils (%) (Auto) 0.0 % Basophils (%) (Auto) 0.1 % Neutrophils # (Auto) 13.3 TH/MM3 Lymphocytes # (Auto) 1.4 TH/MM3 Monocytes # (Auto) 0.4 TH/MM3 Eosinophils # (Auto) 0.0 TH/MM3 Basophils # (Auto) 0.0 TH/MM3 CBC Comment DIFF FINAL Differential Comment Blood Urea Nitrogen 13 MG/DL Creatinine 0.81 MG/DL Random Glucose 109 MG/DL Total Protein 6.9 GM/DL Albumin 3.5 GM/DL Calcium Level 8.7 MG/DL Alkaline Phosphatase 61 U/L Aspartate Amino Transf (AST/SGOT) 13 U/L Alanine Aminotransferase (ALT/SGPT) 26 U/L Total Bilirubin 0.4 MG/DL Direct Bilirubin 0.1 MG/DL Sodium Level 140 MEQ/L Potassium Level 4.1 MEQ/L Chloride Level 107 MEQ/L Carbon Dioxide Level 24.5 MEQ/L Anion Gap 9 MEQ/L Estimat Glomerular Filtration Rate 75 ML/MIN Indirect Bilirubin 0.3 MG/DL Total Creatine Kinase 57 U/L Troponin I LESS THAN 0.02 NG/ML LESS THAN 0.02 NG/ML B-Type Natriuretic Peptide 80 PG/ML Prothrombin Time 9.7 SEC Prothromb Time International Ratio 1.0 RATIO Activated Partial Thromboplast Time 25.2 SEC MDM Medical Decision Making Medical Screen Exam Complete: Yes Emergency Medical Condition: Yes Medical Record Reviewed: Yes Differential Diagnosis Cardiac syndrome. CHF. COPD with acute exacerbation. Wheezing. Failure to outpatient therapy. Narrative Course Cardiac labs ordered in triage. Chest x-ray ordered in triage Labs showed leukocytosis of 15.1 Chemistries unremarkable except for GFR of 75, random glucose 109, first troponin is less than 0.02. Creatinine kinase is 57 Coagulation studies, LFTs, and proBNP are added. Patient is given aspirin 324 mg p.o. Patient is given 2 mg morphine IV, 0.4 mg sublingual nitro, and 125 mg methylprednisone IV. Patient is given a DuoNeb every 15 minutes 3. Patient is given 500 mL's normal saline bolus. EKG is reviewed showing sinus rhythm without significant ST changes. Today's EKG is unchanged from previous in April 2017. Coagulation studies unremarkable. 1900 hrs. care of the patient is turned over to Dr. Carey pending second troponin. Please see his note for final disposition. Scripts Hydrocodone-Chlorpheniramine 12 HR Liq (Tussionex Pennkinetic Ext 12 HR Liq) 10- 8 Mg/5 Ml Susp 5 ML PO Q12H Y for COUGH AND/OR COLD SYMPTOMS, #60 ML 0 Refills Prov: Rolo Carey MD 10/26/17 Condition: Stable Guiod Milian Oct 26, 2017 17:45
[2017-10-26] MEDS: RESP: ALBUTEROL 2.5 MG/IPRATROPIUM 0.5 MG NEB (SCH) INH (17:54)
[2017-10-26 18:16] VITALS: BP 141/68; PULSE 84; RESP 20; O2SAT 99
[2017-10-26 18:18] LABS: ALBUMIN 3.5 GM/DL (3.4-5.0); AST (GOT) 13 U/L (15-37); TOTAL BILIRUBIN ADULT 0.4 MG/DL (0.2-1.0); TOTAL PROTEIN 6.9 GM/DL (6.4-8.2)
[2017-10-26] MEDS ORDERED: PRED20 PO (18:20)
[2017-10-26] MEDS ORDERED: LEVA750T9 PO (18:20)
[2017-10-26] MEDS ORDERED: MELO15TA20 PO (18:20)
[2017-10-26] MEDS ORDERED: VENTAER INH (18:20)
[2017-10-26] MEDS ORDERED: BENZ100 PO (18:20)
[2017-10-26] MEDS ORDERED: SYMB160A INH (18:20)
[2017-10-26 18:21] VITALS: BP_SYST 141; BP_SYST 145; BP_DIAS 68; BP_DIAS 84; PULSE 85; RESP 20; O2SAT 99
[2017-10-26 18:29] LABS: ALT (GPT) 26 U/L (10-53); DIRECT BILIRUBIN ADULT 0.1 MG/DL (0.0-0.2); INDIRECT BILIRUBIN 0.3 MG/DL (0.0-0.8)
[2017-10-26 18:30] LABS: ALKALINE PHOSPHATASE 61 U/L (45-117)
[2017-10-26 18:35] VITALS: BP 145/84; PULSE 96; RESP 20; O2SAT 98
[2017-10-26] MEDS ORDERED: TUSSSUS2 PO (18:41)
[2017-10-26] MEDS ORDERED: MORPHINE SULFATE 2 MG/ML INJ IV PUSH ONE (18:45)
[2017-10-26 19:28] VITALS: BP 129/58; PULSE 79; RESP 17; O2SAT 99
--- NOTE | 2017-10-26 19:39 | PD ---
Physical Exam Narrative GENERAL: SKIN: Warm and dry. HEAD: Atraumatic. Normocephalic. EYES: Pupils equal and round. No scleral icterus. No injection or drainage. ENT: No nasal bleeding or discharge. Mucous membranes pink and moist. NECK: Trachea midline. No JVD. CARDIOVASCULAR: Regular rate and rhythm. RESPIRATORY: No accessory muscle use. Clear to auscultation. Breath sounds equal bilaterally. GASTROINTESTINAL: Abdomen soft, non-tender, nondistended. MUSCULOSKELETAL: Extremities without clubbing, cyanosis, or edema. No obvious deformities. NEUROLOGICAL: Awake and alert. No obvious cranial nerve deficits. Motor grossly within normal limits. Five out of 5 muscle strength in the arms and legs. Normal speech. PSYCHIATRIC: Appropriate mood and affect; insight and judgment normal. Data Data Last Documented VS Vital Signs Date Time Temp Pulse Resp B/P (MAP) Pulse Ox O2 Delivery O2 Flow Rate FiO2 10/26/17 19:30 79 17 99 Room Air 10/26/17 19:28 129/58 (81) 10/26/17 14:56 98.5 Orders Orders Electrocardiogram (10/26/17 14:54) Complete Blood Count With Diff (10/26/17 14:54) Basic Metabolic Panel (Bmp) (10/26/17 14:54) Ckmb (Isoenzyme) Profile (10/26/17 14:54) Troponin I (10/26/17 14:54) Chest, Pa & Lat (10/26/17 ) B-Type Natriuretic Peptide (10/26/17 17:42) Prothrombin Time / Inr (Pt) (10/26/17 17:42) Act Partial Throm Time (Ptt) (10/26/17 17:42) Ecg Monitoring (10/26/17 17:42) Bilateral Bp Monitoring (10/26/17 17:42) Iv Access Insert/Monitor (10/26/17 17:42) Oximetry (10/26/17 17:42) Oxygen Administration (10/26/17 17:42) Aspirin Chew (Aspirin Chew) (10/26/17 17:45) Morphine Inj (Morphine Inj) (10/26/17 17:45) Sodium Chloride 0.9% Flush (Ns Flush) (10/26/17 17:45) Nitroglycerin Sl (Nitrostat Sl) (10/26/17 17:45) Sodium Chlorid 0.9% 500 Ml Inj (Ns 500 M (10/26/17 17:45) Methylprednisolone So Succ Inj (Solumedr (10/26/17 17:45) Albuterol-Ipratropium Neb (Duoneb Neb) (10/26/17 17:45) Hepatic Functional Panel (10/26/17 15:24) Troponin I (10/26/17 18:27) Morphine Inj (Morphine Inj) (10/26/17 18:45) Ed Discharge Order (10/26/17 19:34) Labs Laboratory Tests Test 10/26/17 15:24 10/26/17 18:45 White Blood Count 15.1 TH/MM3 Red Blood Count 3.96 MIL/MM3 Hemoglobin 12.4 GM/DL Hematocrit 37.3 % Mean Corpuscular Volume 94.2 FL Mean Corpuscular Hemoglobin 31.4 PG Mean Corpuscular Hemoglobin Concent 33.3 % Red Cell Distribution Width 15.0 % Platelet Count 328 TH/MM3 Mean Platelet Volume 8.6 FL Neutrophils (%) (Auto) 87.8 % Lymphocytes (%) (Auto) 9.2 % Monocytes (%) (Auto) 2.9 % Eosinophils (%) (Auto) 0.0 % Basophils (%) (Auto) 0.1 % Neutrophils # (Auto) 13.3 TH/MM3 Lymphocytes # (Auto) 1.4 TH/MM3 Monocytes # (Auto) 0.4 TH/MM3 Eosinophils # (Auto) 0.0 TH/MM3 Basophils # (Auto) 0.0 TH/MM3 CBC Comment DIFF FINAL Differential Comment Blood Urea Nitrogen 13 MG/DL Creatinine 0.81 MG/DL Random Glucose 109 MG/DL Total Protein 6.9 GM/DL Albumin 3.5 GM/DL Calcium Level 8.7 MG/DL Alkaline Phosphatase 61 U/L Aspartate Amino Transf (AST/SGOT) 13 U/L Alanine Aminotransferase (ALT/SGPT) 26 U/L Total Bilirubin 0.4 MG/DL Direct Bilirubin 0.1 MG/DL Sodium Level 140 MEQ/L Potassium Level 4.1 MEQ/L Chloride Level 107 MEQ/L Carbon Dioxide Level 24.5 MEQ/L Anion Gap 9 MEQ/L Estimat Glomerular Filtration Rate 75 ML/MIN Indirect Bilirubin 0.3 MG/DL Total Creatine Kinase 57 U/L Troponin I LESS THAN 0.02 NG/ML LESS THAN 0.02 NG/ML [facility] Medical Record Reviewed: Yes Supervised Visit with ADRIEN: Yes Narrative Course CHEST XRAY READ BY RADIOLOGIST NO ACUTE DISEASE NL ELECTROLYTES, NL KIDNEY/LIVER FUNCTIONS, NEG CARDIAC ENZYMES AND NEG DELTA TROPONIN Diagnosis Primary Impression: COPD EXACERBATION Patient Instructions: COPD (Chronic Obstructive Pulmonary Disease) (ED), General Instructions Additional Instruction: CONTINUE TO TAKE YOUR ANTIBIOTICS, STEROIDS AND INHALERS....FOLLOW UP WITH YOUR PRIMARY CARE DOCTOR Scripts Hydrocodone-Chlorpheniramine 12 HR Liq (Tussionex Pennkinetic Ext 12 HR Liq) 10- 8 Mg/5 Ml Susp 5 ML PO Q12H Y for COUGH AND/OR COLD SYMPTOMS, #60 ML 0 Refills Prov: Rolo Carey MD 10/26/17 Disposition: 01 DISCHARGE HOME Condition: Stable Rolo Carey MD Oct 26, 2017 19:39
[2017-10-26 20:04] LABS: PROTHROMBIN TIME - PATIENT 9.7 SEC (9.8-11.6)
--- NOTE | 2017-10-27 21:32 | EKG ---
Date Performed: 10/26/2017 Time Performed: 15:19:27 PTAGE: 51 years EKG: Sinus rhythm ABNORMAL QRS-T ANGLE ABNORMAL ECG Compared to PREVIOUS TRACING , there is now artifact; otherwise, no significant change. PREVIOUS TRAC IN04/30/2017 05.59 DOCTOR: Franklin Alanis Interpretating Date/Time 10/27/2017 21:31:17
== END 2017-10-26 20:24 | disposition home or self-care (01) ==
LOC: NEPD 14:23
DX: J44.1 Chronic obstructive pulmonary disease with (acute) exacerbation (principal); R94.31 Abnormal electrocardiogram [ECG] [EKG]; R06.02 Shortness of breath; M19.90 Unspecified osteoarthritis, unspecified site; F32.9 Major depressive disorder, single episode, unspecified; K58.9 Irritable bowel syndrome, unspecified; I25.2 Old myocardial infarction; F17.200 Nicotine dependence, unspecified, uncomplicated
CPT/HCPCS: 71046; 80048; 80076; 82550; 83880; 84484; 85025; 85610; 85730; 93005; 94640; 94664; 96374; 96375; 99285; J2270; J2930; J7040